=== PATIENT | female | born 1935 | race African-American/Black ===

== ENCOUNTER → 2018-03-22 | Outpatient (CLI) | payer MEDICARE, MEDICAID ==
[~2018-03-22] MED LIST: ACET-2178 PO; ATOR40TA70 PO; CEPH-569 PO; CLON0.1T PO; DOCU-138 PO; INSU3INS6 SUBCUT; KEPP250 PO; LEVO75TA PO; LIP40 PO; LISI10TA5 PO; ONDA4TAB5 PO; REGADENOSON 0.4 MG/5 ML IV ONE; TUSSL PO; WARF5TAB76 PO
== END | disposition home or self-care (01) ==
LOC: NM 07:39
PROVIDERS: ATTEND Specialist
DX: I48.91 Unspecified atrial fibrillation (principal); I10 Essential (primary) hypertension
CPT/HCPCS: 78452; 93017; 93308; A9500; J2785

== ENCOUNTER 2018-08-04 19:40 | Inpatient (IN) | payer MEDICARE, MEDICAID ==
[~2018-08-04] VITALS: Ht 165.1 cm; Wt 74.8 kg
[~2018-08-04 19:40] MED LIST changes: -ATOR40TA70 PO; -CEPH-569 PO; -CLON0.1T PO; +DILT180C66 PO; +INSU100I28 SQ; -INSU3INS6 SUBCUT; -KEPP250 PO; +KEPP500 PO; -LISI10TA5 PO; +MEGE40TA27 PO; -REGADENOSON 0.4 MG/5 ML IV ONE; +TRAM50TA PO; -TUSSL PO
[2018-08-04] MEDS ORDERED: SODIUM CHLORIDE 0.9% 1,000 ML IV ONE (20:41)
[2018-08-04] MEDS ORDERED: VANCOMYCIN 1 G PREMIX 200 ML IV ONE (20:45)
[2018-08-04] MEDS ORDERED: LEVETIRACETAM 500MG PREMIX 100 ML IV ONE (20:45)
[2018-08-04] MEDS ORDERED: PIPERACILLIN/TAZ 3.375G PREMIX 50 ML IV ONE (20:45)
[2018-08-04 21:23] LABS: CHLORIDE 100 mEq/L (98-107)
[2018-08-04 21:25] LABS: INR 1.1; PROTHROMBIN TIME 11.2 sec (9.1-11.1)
[2018-08-04 21:30] LABS: BASOPHILS % 0.3 % (0.0-2.0); EOSINOPHILS % 0.2 % (0.0-5.0); HEMATOCRIT. 35.9 % (36.0-48.0); HEMOGLOBIN. 11.8 g/dL (12.0-16.0); LYMPHOCYTES % 21.8 % (20.0-50.0); MEAN CORPUSCULAR HEMOGLOBIN 29.1 pg (28.0-32.0); MEAN CORPUSCULAR VOLUME 88.5 fL (81.0-99.0); MEAN PLATELET VOLUME 8.6 fl (7.4-10.4); MONOCYTES % 11.5 % (2.0-8.0); NEUTROPHILS % 66.2 % (40.0-76.0); PLATELET 147 x1000/uL (130-400); RED BLOOD CELL COUNT 4.06 mill/uL (4.2-5.4); RED CELL DISTRIBUTION WIDTH 14.7 % (11.6-14.6)
[2018-08-04 21:31] LABS: CARBAMAZEPINE < 0.5 ug/mL (4-12)
[2018-08-04 21:32] LABS: CREATINE KINASE 130 IU/L (26-192)
[2018-08-04 21:34] LABS: PHENOBARBITAL < 2.1 ug/mL (15.0-40.0); VALPROIC ACID < 3.0 ug/mL (50-100)
[2018-08-04 21:38] LABS: CLARITY URINE TURBID (CLEAR); COLOR URINE YELLOW (YELLOW); KETONES URINE NEGATIVE (NEGATIVE); LEUKOCYTE ESTERASE URINE 3+ (NEGATIVE); NITRITE URINE NEGATIVE (NEGATIVE); OCCULT BLOOD URINE 2+ (NEGATIVE); PH URINE 5.5 (4.5-8.0); PROTEIN URINE 2+ (NEGATIVE); SPECIFIC GRAVITY URINE 1.014 (1.005-1.030); UROBILINOGEN URINE 0.2 E.U./dL (0.2-1.0)
[2018-08-04 23:43] LABS: BG BASE EXCESS 3.2 mmol/L (-2.0-2.0); BG CARBOXYHEMOGLOBIN 0.3 % (0.5-1.5); BG DEOXYHEMOGLOBIN 0.8 % (0.0-5.0); BG FRACTION INSPIRED OXYGEN 28; BG HCO3 ACT 27.5 mmol/L (22.0-26.0); BG METHEMOGLOBIN 0.4 % (0.0-1.5); BG OXYGEN SATURATION 99.2 % (92.0-98.5); BG OXYHEMOGLOBIN 98.5 % (94.0-97.0); BG PCO2 41.2 mmHg (35.0-45.0); BG PH 7.443 (7.350-7.450); BG PO2 197.1 mmHg (75.0-100.0); BG SAMPLE SITE RIGHT BRACHIAL; BG VENT MODE NASAL CANNULA
[2018-08-05] VITALS (8 sets, daily range): BP systolic 106–137; BP diastolic 56–97
[2018-08-05] MEDS ORDERED: ASPIRIN 300MG SUPP PR ONE (02:00)
[2018-08-05] MEDS ORDERED: ACETAMINOPHEN 325MG TABLET PO PRN (04:45)
[2018-08-05] MEDS ORDERED: ONDANSETRON HCL 4MG/2ML INJ IV PRN (04:45)
[2018-08-05] MEDS ORDERED: CLONIDINE 0.1MG TABLET PO PRN (04:45)
[2018-08-05] MEDS ORDERED: DOCUSATE SODIUM 100MG CAPSULE PO PRN (04:45)
[2018-08-05] MEDS ORDERED: PIPERACILLIN/TAZ 3.375G PREMIX 50 ML IV SCH (04:45)
[2018-08-05] MEDS ORDERED: ASPI-1158 MT (05:59)
[2018-08-05] MEDS ORDERED: METO-385 MT (05:59)
[2018-08-05] MEDS ORDERED: LEVE750T4 MT (05:59)
[2018-08-05] MEDS ORDERED: MELA3TAB71 MT (05:59)
[2018-08-05] MEDS ORDERED: CLON0.1T MT (05:59)
[2018-08-05] MEDS ORDERED: DEXTROSE 50% WATER 50ML SYRINGE IV PRN (06:00)
[2018-08-05] MEDS: SODIUM CHLORIDE 0.45% 1,000 ML IV SCH (06:29)
[2018-08-05] MEDS: INSULIN LISPRO 100 UNITS/ML SUBCUT SCH ×2 (06:44→12:53)
[2018-08-05] MEDS ORDERED: BLOOD SUGAR DIAGNOSTIC STRIP TEST SCH (07:10)
[2018-08-05] MEDS: IPRATROPIUM/ALBUTEROL 0.5-3(2.5)MG/3ML NEB INH SCH ×3 (09:10→20:58)
[2018-08-05] MEDS ORDERED: INSULIN GLARGINE UD 100 UNITS/ML SYR SUBCUT SCH ×2 (10:00)
[2018-08-05] MEDS: ENOXAPARIN 40MG/0.4ML SYR SUBCUT SCH (13:47)
[2018-08-05] MEDS: LEVETIRACETAM 500MG TABLET PO SCH ×2 (13:48→21:00)
[2018-08-05] MEDS: DILTIAZEM HCL 180MG CAPSULE CD 24HR PO SCH (13:49)
[2018-08-05] MEDS: LEVOTHYROXINE SODIUM 75MCG TABLET PO SCH (13:50)
[2018-08-05] MEDS: ATORVASTATIN CALCIUM 40MG TABLET PO SCH (22:43)
[2018-08-06] VITALS: BP_SYST 122; BP_SYST 91; BP_DIAS 53; BP_DIAS 62
[2018-08-06] MEDS: SODIUM CHLORIDE 0.45% 1,000 ML IV SCH ×2 (00:59→20:54)
[2018-08-06] MEDS: IPRATROPIUM/ALBUTEROL 0.5-3(2.5)MG/3ML NEB INH SCH ×4 (01:16→21:19)
[2018-08-06 04:00] VITALS: BP 122/53
[2018-08-06 07:35] LABS: BASOPHILS % 0.2 % (0.0-2.0); EOSINOPHILS % 0.3 % (0.0-5.0); HEMATOCRIT. 28.9 % (36.0-48.0); HEMOGLOBIN. 9.6 g/dL (12.0-16.0); LYMPHOCYTES % 32.8 % (20.0-50.0); MEAN CORPUSCULAR HEMOGLOBIN 29.2 pg (28.0-32.0); MEAN CORPUSCULAR VOLUME 87.2 fL (81.0-99.0); MEAN PLATELET VOLUME 8.3 fl (7.4-10.4); MONOCYTES % 14.6 % (2.0-8.0); NEUTROPHILS % 52.1 % (40.0-76.0); PLATELET 129 x1000/uL (130-400); RED BLOOD CELL COUNT 3.31 mill/uL (4.2-5.4); RED CELL DISTRIBUTION WIDTH 14.6 % (11.6-14.6)
[2018-08-06 07:54] LABS: CHLORIDE 104 mEq/L (98-107)
[2018-08-06 08:00] VITALS: BP 104/66
[2018-08-06] MEDS: PIPERACILLIN/TAZ 3.375G PREMIX 50 ML IV SCH ×3 (08:25→20:52)
[2018-08-06] MEDS: LEVOTHYROXINE SODIUM 75MCG TABLET PO SCH (08:38)
[2018-08-06] MEDS: ENOXAPARIN 40MG/0.4ML SYR SUBCUT SCH (08:41)
[2018-08-06] MEDS: DILTIAZEM HCL 180MG CAPSULE CD 24HR PO SCH (08:48)
[2018-08-06] MEDS: LEVETIRACETAM 500MG TABLET PO SCH ×2 (08:49→20:54)
[2018-08-06] MEDS ORDERED: POTASSIUM CHLORIDE 20MEQ/PACKET PO SCH (09:30)
[2018-08-06] MEDS ORDERED: DEXTROSE 50% WATER 50ML SYRINGE IV PRN (09:45)
[2018-08-06] MEDS ORDERED: LACTULOSE 20G/30ML UDC PO PRN (09:45)
[2018-08-06] MEDS: BLOOD SUGAR DIAGNOSTIC STRIP TEST SCH ×3 (11:32→19:52)
[2018-08-06] MEDS: FLUCONAZOLE 100MG TABLET PO SCH (11:40)
[2018-08-06] MEDS: INSULIN LISPRO (MEDIUM DOSE) 100 UNITS/ML SUBCUT SCH ×3 (11:42→20:54)
[2018-08-06] MEDS: INSULIN GLARGINE UD 100 UNITS/ML SYR SUBCUT SCH (11:43)
[2018-08-06 12:00] VITALS: BP 124/64
[2018-08-06] MEDS ORDERED: BLOOD SUGAR DIAGNOSTIC STRIP TEST SCH (12:10)
[2018-08-06 16:00] VITALS: BP 131/67
[2018-08-06 20:00] VITALS: BP 136/70
[2018-08-06] MEDS: ATORVASTATIN CALCIUM 40MG TABLET PO SCH (20:54)
[2018-08-07] VITALS: BP 122/71
[2018-08-07] MEDS: IPRATROPIUM/ALBUTEROL 0.5-3(2.5)MG/3ML NEB INH SCH ×4 (01:39→20:08)
[2018-08-07 04:00] VITALS: BP 132/78
[2018-08-07] MEDS: PIPERACILLIN/TAZ 3.375G PREMIX 50 ML IV SCH (05:15)
[2018-08-07] MEDS: BLOOD SUGAR DIAGNOSTIC STRIP TEST SCH ×4 (05:51→20:43)
[2018-08-07] MEDS: INSULIN LISPRO (MEDIUM DOSE) 100 UNITS/ML SUBCUT SCH ×4 (05:52→21:00)
[2018-08-07] MEDS: LEVOTHYROXINE SODIUM 75MCG TABLET PO SCH (05:53)
[2018-08-07 08:00] VITALS: BP 93/69
[2018-08-07] MEDS: FLUCONAZOLE 100MG TABLET PO SCH (08:53)
[2018-08-07] MEDS: LEVETIRACETAM 500MG TABLET PO SCH ×2 (08:53→21:46)
[2018-08-07] MEDS: SODIUM CHLORIDE 0.45% 1,000 ML IV SCH (08:55)
[2018-08-07] MEDS: DILTIAZEM HCL 180MG CAPSULE CD 24HR PO SCH (08:55)
[2018-08-07] MEDS: ENOXAPARIN 40MG/0.4ML SYR SUBCUT SCH (08:56)
[2018-08-07 09:41] LABS: HEMATOCRIT. 31.2 % (36.0-48.0); HEMOGLOBIN. 10.2 g/dL (12.0-16.0); MEAN CORPUSCULAR HEMOGLOBIN 28.6 pg (28.0-32.0); MEAN CORPUSCULAR VOLUME 87.8 fL (81.0-99.0); MEAN PLATELET VOLUME 8.4 fl (7.4-10.4); PLATELET 133 x1000/uL (130-400); RED BLOOD CELL COUNT 3.55 mill/uL (4.2-5.4); RED CELL DISTRIBUTION WIDTH 14.6 % (11.6-14.6)
[2018-08-07 09:48] LABS: CHLORIDE 107 mEq/L (98-107)
[2018-08-07 09:56] LABS: PHOSPHORUS 3.1 mg/dL (2.5-4.9)
[2018-08-07] MEDS: INSULIN GLARGINE UD 100 UNITS/ML SYR SUBCUT SCH (10:44)
[2018-08-07 12:00] VITALS: BP 121/85
[2018-08-07] MEDS ORDERED: MAGNESIUM 4 G PREMIX 100 ML IV NR (13:00)
[2018-08-07 16:00] VITALS: BP 103/66
[2018-08-07 20:00] VITALS: BP 126/59
[2018-08-07 20:36] LABS: PLATELET ESTIMATE NORMAL
[2018-08-07] MEDS: ATORVASTATIN CALCIUM 40MG TABLET PO SCH (21:46)
[2018-08-08] VITALS: BP 130/62
[2018-08-08] MEDS: IPRATROPIUM/ALBUTEROL 0.5-3(2.5)MG/3ML NEB INH SCH ×4 (01:45→20:50)
[2018-08-08 04:00] VITALS: BP 135/65
[2018-08-08] MEDS: BLOOD SUGAR DIAGNOSTIC STRIP TEST SCH ×4 (05:32→20:25)
[2018-08-08] MEDS: INSULIN LISPRO (MEDIUM DOSE) 100 UNITS/ML SUBCUT SCH ×4 (05:32→21:18)
[2018-08-08] MEDS: LEVOTHYROXINE SODIUM 75MCG TABLET PO SCH (05:49)
[2018-08-08 06:57] LABS: BASOPHILS % 0.6 % (0.0-2.0); EOSINOPHILS % 0.8 % (0.0-5.0); HEMATOCRIT. 31.9 % (36.0-48.0); HEMOGLOBIN. 10.5 g/dL (12.0-16.0); MEAN CORPUSCULAR HEMOGLOBIN 29.2 pg (28.0-32.0); MEAN PLATELET VOLUME 8.1 fl (7.4-10.4); MONOCYTES % 14.1 % (2.0-8.0); NEUTROPHILS % 43.5 % (40.0-76.0); PLATELET 87 x1000/uL (130-400); RED BLOOD CELL COUNT 3.58 mill/uL (4.2-5.4); RED CELL DISTRIBUTION WIDTH 14.9 % (11.6-14.6)
[2018-08-08 07:55] LABS: CHLORIDE 107 mEq/L (98-107)
[2018-08-08 08:00] VITALS: BP 161/71
[2018-08-08 08:24] LABS: PHOSPHORUS 3.3 mg/dL (2.5-4.9)
[2018-08-08] MEDS: FLUCONAZOLE 100MG TABLET PO SCH (08:54)
[2018-08-08] MEDS: ENOXAPARIN 40MG/0.4ML SYR SUBCUT SCH (08:56)
[2018-08-08] MEDS: LEVETIRACETAM 500MG TABLET PO SCH ×2 (08:56→21:17)
[2018-08-08] MEDS: DILTIAZEM HCL 180MG CAPSULE CD 24HR PO SCH (08:57)
[2018-08-08] MEDS: INSULIN GLARGINE UD 100 UNITS/ML SYR SUBCUT SCH (10:25)
[2018-08-08 12:00] VITALS: BP 100/70
[2018-08-08 16:00] VITALS: BP 134/62
[2018-08-08 20:00] VITALS: BP 138/56
[2018-08-08] MEDS: ATORVASTATIN CALCIUM 40MG TABLET PO SCH (21:17)
[2018-08-09] VITALS (7 sets, daily range): BP systolic 107–132; BP diastolic 60–72
[2018-08-09] MEDS: BLOOD SUGAR DIAGNOSTIC STRIP TEST SCH ×3 (05:52→17:29)
[2018-08-09] MEDS: INSULIN LISPRO (MEDIUM DOSE) 100 UNITS/ML SUBCUT SCH ×3 (06:18→17:29)
[2018-08-09] MEDS: LEVOTHYROXINE SODIUM 75MCG TABLET PO SCH (06:18)
[2018-08-09] MEDS: IPRATROPIUM/ALBUTEROL 0.5-3(2.5)MG/3ML NEB INH SCH ×3 (09:00→15:00)
[2018-08-09] MEDS: LEVETIRACETAM 500MG TABLET PO SCH (10:53)
[2018-08-09] MEDS: FLUCONAZOLE 100MG TABLET PO SCH (10:53)
[2018-08-09] MEDS: DILTIAZEM HCL 180MG CAPSULE CD 24HR PO SCH (10:53)
[2018-08-09] MEDS: INSULIN GLARGINE UD 100 UNITS/ML SYR SUBCUT SCH (10:54)
[2018-08-09 12:51] LABS: BASOPHILS % 0.2 % (0.0-2.0); EOSINOPHILS % 0.6 % (0.0-5.0); HEMATOCRIT. 31.5 % (36.0-48.0); HEMOGLOBIN. 10.3 g/dL (12.0-16.0); LYMPHOCYTES % 39.7 % (20.0-50.0); MEAN CORPUSCULAR HEMOGLOBIN 28.4 pg (28.0-32.0); MEAN CORPUSCULAR VOLUME 87.3 fL (81.0-99.0); MEAN PLATELET VOLUME 8.6 fl (7.4-10.4); MONOCYTES % 11.5 % (2.0-8.0); PLATELET 142 x1000/uL (130-400); RED BLOOD CELL COUNT 3.61 mill/uL (4.2-5.4); RED CELL DISTRIBUTION WIDTH 14.7 % (11.6-14.6)
[2018-08-09 13:11] LABS: CHLORIDE 103 mEq/L (98-107)
[2018-08-09] MEDS ORDERED: MAGNESIUM 2 G PREMIX 50 ML IV NR (17:00)
== END 2018-08-09 20:48 | DRG 871 ==
LOC: ER 20:48 → 8WST 08-05 02:00 → EDBEDREQDT 08-05 02:03 → EDBEDREQTM 08-05 02:03 → EDBEDREQSVC 08-05 02:03 → EDBEDREQ 08-05 02:03 → ENRESERV 08-05 03:52
PROVIDERS: ADMIT Internal Medicine; ATTEND Internal Medicine
PROC: 4A00X4Z Measurement of Central Nervous Electrical Activity, External Approach (ICD-10-PCS; principal; 2018-08-09)
DX: A41.9 Sepsis, unspecified organism (principal); E43 Unspecified severe protein-calorie malnutrition; I13.0 Hypertensive heart and chronic kidney disease with heart failure and stage 1 through stage 4 chronic kidney disease, or unspecified chronic kidney disease; B37.49 Other urogenital candidiasis; I42.9 Cardiomyopathy, unspecified; I69.354 Hemiplegia and hemiparesis following cerebral infarction affecting left non-dominant side; G40.909 Epilepsy, unspecified, not intractable, without status epilepticus; N18.9 Chronic kidney disease, unspecified; E11.22 Type 2 diabetes mellitus with diabetic chronic kidney disease; E03.9 Hypothyroidism, unspecified; D64.9 Anemia, unspecified; I50.9 Heart failure, unspecified; D69.6 Thrombocytopenia, unspecified; E78.5 Hyperlipidemia, unspecified; I48.2 Chronic atrial fibrillation; E83.42 Hypomagnesemia; E87.6 Hypokalemia; F03.90 Unspecified dementia, unspecified severity, without behavioral disturbance, psychotic disturbance, mood disturbance, and anxiety; K21.9 Gastro-esophageal reflux disease without esophagitis; D72.819 Decreased white blood cell count, unspecified; Z79.4 Long term (current) use of insulin; Z85.3 Personal history of malignant neoplasm of breast; Z86.718 Personal history of other venous thrombosis and embolism; Z90.11 Acquired absence of right breast and nipple; Z95.810 Presence of automatic (implantable) cardiac defibrillator; Z68.27 Body mass index [BMI] 27.0-27.9, adult; Z87.440 Personal history of urinary (tract) infections; Z79.01 Long term (current) use of anticoagulants; Z79.899 Other long term (current) drug therapy
CPT/HCPCS: 36415; 36600; 71045; 74176; 80048; 80156; 80165; 80184; 80185; 82375; 82542; 82550; 82805; 82962; 83036; 83605; 83735; 84100; 84145; 84439; 84443; 84484; 87106; 92610; 93005; 93306; 93970; 94640; 96361; 96365; 96366; 96368; 99285; J1650; J1815; J1953; J2543; J3370; J3475; J7030; J7050; J7620

== ENCOUNTER 2018-12-08 21:57 | Inpatient (IN) | payer MEDICARE, MEDICAID ==
[~2018-12-08] VITALS: Ht 165.1 cm; Wt 49.9 kg
[~2018-12-08 21:57] MED LIST changes: +ASPI-1158 MT; +CLON0.1T MT; -KEPP500 PO; +LEVE750T4 MT; +MELA3TAB71 MT; +METO-385 MT
[2018-12-08 23:37] LABS: BG BASE EXCESS -5.5 mmol/L (-2.0-2.0); BG CARBOXYHEMOGLOBIN 0.3 % (0.5-1.5); BG FRACTION INSPIRED OXYGEN 21; BG HCO3 ACT 16.3 mmol/L (22.0-26.0); BG METHEMOGLOBIN 0.3 % (0.0-1.5); BG OXYHEMOGLOBIN 98.4 % (94.0-97.0); BG PCO2 22.5 mmHg (35.0-45.0); BG PH 7.479 (7.350-7.450); BG PO2 151.8 mmHg (75.0-100.0); BG SAMPLE SITE RIGHT RADIAL; BG TOTAL HEMOGLOBIN 11.6 g/dL (12.0-18.0); BG VENT MODE ROOM AIR
[2018-12-08 23:56] LABS: CLARITY URINE CLOUDY (CLEAR); COLOR URINE YELLOW (YELLOW); KETONES URINE TRACE (NEGATIVE); LEUKOCYTE ESTERASE URINE 3+ (NEGATIVE); NITRITE URINE POSITIVE (NEGATIVE); OCCULT BLOOD URINE 2+ (NEGATIVE); PH URINE 5.5 (4.5-8.0); PROTEIN URINE 2+ (NEGATIVE); SPECIFIC GRAVITY URINE 1.021 (1.005-1.030); UROBILINOGEN URINE 0.2 E.U./dL (0.2-1.0)
[2018-12-09 00:26] LABS: BASOPHILS % 0.2 % (0.0-2.0); EOSINOPHILS % 0.1 % (0.0-5.0); HEMATOCRIT. 36.8 % (36.0-48.0); HEMOGLOBIN. 12.1 g/dL (12.0-16.0); MEAN CORPUSCULAR HEMOGLOBIN 29.5 pg (28.0-32.0); MEAN CORPUSCULAR VOLUME 90.2 fL (81.0-99.0); MEAN PLATELET VOLUME 8.4 fl (7.4-10.4); MONOCYTES % 9.7 % (2.0-8.0); PLATELET 120 x1000/uL (130-400); RED BLOOD CELL COUNT 4.08 mill/uL (4.2-5.4); RED CELL DISTRIBUTION WIDTH 16.7 % (11.6-14.6)
[2018-12-09 00:30] LABS: CHLORIDE 109 mEq/L (98-107)
[2018-12-09] MEDS ORDERED: CEFTRIAXONE SODIUM 1 G/VIAL IM ONE (02:00)
[2018-12-09] MEDS ORDERED: CEFTRIAXONE 1 G PREMIX 50 ML IV ONE (02:45)
[2018-12-09 04:00] VITALS: BP 131/66
[2018-12-09] MEDS ORDERED: ACETAMINOPHEN 325MG TABLET PO PRN ×4 (04:45→06:45)
[2018-12-09] MEDS ORDERED: LORAZEPAM 0.5MG TABLET PO PRN (04:45)
[2018-12-09] MEDS ORDERED: LACTULOSE 20G/30ML UDC PO PRN (04:45)
[2018-12-09] MEDS ORDERED: DEXTROSE 50% WATER 50ML SYRINGE IV PRN ×2 (05:45)
[2018-12-09] MEDS: BLOOD SUGAR DIAGNOSTIC STRIP TEST SCH ×4 (06:47→20:31)
[2018-12-09] MEDS: LEVOTHYROXINE SODIUM 75MCG TABLET PO SCH (06:58)
[2018-12-09] MEDS ORDERED: BLOOD SUGAR DIAGNOSTIC STRIP TEST SCH (07:20)
[2018-12-09 08:00] VITALS: BP 101/41
[2018-12-09] MEDS: DILTIAZEM HCL 180MG CAPSULE CD 24HR PO SCH (08:56)
[2018-12-09] MEDS: LEVETIRACETAM 500MG TABLET PO SCH ×2 (09:03→21:34)
[2018-12-09] MEDS: MEGESTROL ACETATE 400 MG/10 ML UDC PO SCH ×2 (09:04→17:22)
[2018-12-09] MEDS: POLYVINYL ALCOHOL OPHTH DROPS 15ML BOTHEYE SCH ×2 (09:04→17:22)
[2018-12-09] MEDS: ASCORBIC ACID 500 MG TABLET PO SCH (09:04)
[2018-12-09] MEDS: DOCUSATE SODIUM 250MG CAPSULE PO SCH (09:04)
[2018-12-09] MEDS: INSULIN LISPRO 100 UNITS/ML SUBCUT SCH ×4 (09:06→21:55)
[2018-12-09 09:24] LABS: T4 FREE 1.16 ng/dL (0.76-1.46)
[2018-12-09] MEDS ORDERED: INSULIN GLARGINE UD 100 UNITS/ML SYR SUBCUT SCH (10:00)
[2018-12-09] MEDS: TRAMADOL 50MG TABLET PO PRN (10:27)
[2018-12-09] MEDS ORDERED: LEVOFLOXACIN 250MG TABLET PO SCH (11:00)
[2018-12-09 11:50] VITALS: BP 128/72
[2018-12-09 12:00] VITALS: BP 128/72
[2018-12-09 16:00] VITALS: BP 110/68
[2018-12-09 20:00] VITALS: BP 122/88
[2018-12-09] MEDS: ATORVASTATIN CALCIUM 40MG TABLET PO SCH (21:34)
[2018-12-10] VITALS: BP 128/77
[2018-12-10] MEDS: INSULIN GLARGINE UD 100 UNITS/ML SYR SUBCUT SCH ×3 (00:09→21:40)
[2018-12-10 04:00] VITALS: BP 131/88
[2018-12-10] MEDS: BLOOD SUGAR DIAGNOSTIC STRIP TEST SCH ×4 (06:48→20:22)
[2018-12-10] MEDS: LEVOTHYROXINE SODIUM 75MCG TABLET PO SCH (07:20)
[2018-12-10 08:00] VITALS: BP 164/104
[2018-12-10] MEDS: INSULIN LISPRO 100 UNITS/ML SUBCUT SCH ×4 (08:51→20:22)
[2018-12-10] MEDS: DOCUSATE SODIUM 250MG CAPSULE PO SCH (09:00)
[2018-12-10] MEDS: ASCORBIC ACID 500 MG TABLET PO SCH (09:00)
[2018-12-10] MEDS: DILTIAZEM HCL 180MG CAPSULE CD 24HR PO SCH ×2 (09:00→20:21)
[2018-12-10] MEDS: MEGESTROL ACETATE 400 MG/10 ML UDC PO SCH ×2 (09:00→16:43)
[2018-12-10] MEDS: POLYVINYL ALCOHOL OPHTH DROPS 15ML BOTHEYE SCH ×2 (09:00→16:43)
[2018-12-10] MEDS: LEVETIRACETAM 500MG TABLET PO SCH ×2 (09:00→20:22)
[2018-12-10] MEDS ORDERED: NA PHOS,M-B/NA PHOS,DI-BA ENEMA 118ML PR NR (09:30)
[2018-12-10] MEDS ORDERED: DEXT 5%/0.9% NACL 1,000 ML IV SCH (09:30)
[2018-12-10] MEDS ORDERED: SODIUM CHLORIDE 0.45% 1,000 ML IV SCH (10:00)
[2018-12-10] MEDS: ASPIRIN 81MG TABLET PO SCH (10:45)
[2018-12-10] MEDS: ENOXAPARIN 60MG/0.6ML SYR SUBCUT SCH (10:52)
[2018-12-10] MEDS: LEVOFLOXACIN 250MG PREMIX 50 ML IV SCH (11:14)
[2018-12-10 12:00] VITALS: BP 161/102
[2018-12-10 13:37] LABS: CHLORIDE 107 mEq/L (98-107)
[2018-12-10 16:00] VITALS: BP 128/83
[2018-12-10 16:55] LABS: BASOPHILS % 0.2 % (0.0-2.0); EOSINOPHILS % 0.1 % (0.0-5.0); HEMATOCRIT. 37.8 % (36.0-48.0); HEMOGLOBIN. 12.6 g/dL (12.0-16.0); LYMPHOCYTES % 26.2 % (20.0-50.0); MEAN CORPUSCULAR HEMOGLOBIN 29.7 pg (28.0-32.0); MEAN CORPUSCULAR VOLUME 89.1 fL (81.0-99.0); MEAN PLATELET VOLUME 8.1 fl (7.4-10.4); MONOCYTES % 9.8 % (2.0-8.0); NEUTROPHILS % 63.7 % (40.0-76.0); PLATELET 136 x1000/uL (130-400); RED BLOOD CELL COUNT 4.24 mill/uL (4.2-5.4); RED CELL DISTRIBUTION WIDTH 16.3 % (11.6-14.6)
[2018-12-10 17:00] LABS: INR 1.1; PROTHROMBIN TIME 11.4 sec (9.1-11.1)
[2018-12-10 20:00] VITALS: BP 115/75
[2018-12-10] MEDS: ATORVASTATIN CALCIUM 40MG TABLET PO SCH (20:22)
[2018-12-10] MEDS: DEXT 5%/0.45% NACL 500ML 1,000 ML IV SCH (21:47)
[2018-12-10] MEDS: MUPIROCIN 2% OINT 22GM TOP SCH (21:48)
[2018-12-11] VITALS: BP 110/76
[2018-12-11 04:00] VITALS: BP 123/93
[2018-12-11] MEDS: MUPIROCIN 2% OINT 22GM TOP SCH ×3 (05:14→23:15)
[2018-12-11] MEDS: LEVOTHYROXINE SODIUM 75MCG TABLET PO SCH (06:20)
[2018-12-11] MEDS: BLOOD SUGAR DIAGNOSTIC STRIP TEST SCH ×4 (06:32→21:05)
[2018-12-11] MEDS: INSULIN LISPRO 100 UNITS/ML SUBCUT SCH ×4 (07:50→21:00)
[2018-12-11 08:00] VITALS: BP 158/82
[2018-12-11] MEDS: INSULIN GLARGINE UD 100 UNITS/ML SYR SUBCUT SCH ×2 (10:00→21:05)
[2018-12-11] MEDS: DILTIAZEM HCL 180MG CAPSULE CD 24HR PO SCH ×2 (10:29→20:04)
[2018-12-11] MEDS: MEGESTROL ACETATE 400 MG/10 ML UDC PO SCH ×2 (10:31→18:19)
[2018-12-11] MEDS: ASCORBIC ACID 500 MG TABLET PO SCH (10:35)
[2018-12-11] MEDS: LEVETIRACETAM 500MG TABLET PO SCH ×2 (10:35→20:57)
[2018-12-11] MEDS: ASPIRIN 81MG TABLET PO SCH (10:35)
[2018-12-11] MEDS: POLYVINYL ALCOHOL OPHTH DROPS 15ML BOTHEYE SCH ×2 (10:36→17:00)
[2018-12-11] MEDS: DOCUSATE SODIUM 250MG CAPSULE PO SCH (10:36)
[2018-12-11] MEDS: ENOXAPARIN 60MG/0.6ML SYR SUBCUT SCH (10:36)
[2018-12-11 12:00] VITALS: BP 142/74
[2018-12-11] MEDS: LEVOFLOXACIN 250MG PREMIX 50 ML IV SCH (12:29)
[2018-12-11 16:00] VITALS: BP 138/82
[2018-12-11] MEDS: DEXT 5%/0.45% NACL 500ML 1,000 ML IV SCH (18:09)
[2018-12-11 20:00] VITALS: BP 109/57
[2018-12-11] MEDS: TRAMADOL 50MG TABLET PO PRN (20:57)
[2018-12-11] MEDS: ATORVASTATIN CALCIUM 40MG TABLET PO SCH (20:57)
[2018-12-12] VITALS: BP 126/80
[2018-12-12 04:00] VITALS: BP 130/76
[2018-12-12] MEDS: LEVOTHYROXINE SODIUM 75MCG TABLET PO SCH (06:20)
[2018-12-12] MEDS: BLOOD SUGAR DIAGNOSTIC STRIP TEST SCH ×4 (06:29→21:00)
[2018-12-12 07:26] LABS: BASOPHILS % 0.2 % (0.0-2.0); EOSINOPHILS % 0.2 % (0.0-5.0); HEMATOCRIT. 36.1 % (36.0-48.0); HEMOGLOBIN. 12.2 g/dL (12.0-16.0); LYMPHOCYTES % 29.8 % (20.0-50.0); MEAN CORPUSCULAR VOLUME 89.1 fL (81.0-99.0); MEAN PLATELET VOLUME 8.1 fl (7.4-10.4); MONOCYTES % 9.6 % (2.0-8.0); NEUTROPHILS % 60.2 % (40.0-76.0); PLATELET 132 x1000/uL (130-400); RED BLOOD CELL COUNT 4.05 mill/uL (4.2-5.4); RED CELL DISTRIBUTION WIDTH 16.1 % (11.6-14.6)
[2018-12-12 07:48] LABS: CHLORIDE 106 mEq/L (98-107)
[2018-12-12] MEDS: INSULIN LISPRO 100 UNITS/ML SUBCUT SCH ×4 (07:50→21:00)
[2018-12-12] MEDS: ASPIRIN 81MG TABLET PO SCH (09:29)
[2018-12-12] MEDS: MEGESTROL ACETATE 400 MG/10 ML UDC PO SCH ×2 (09:29→18:16)
[2018-12-12] MEDS: DOCUSATE SODIUM 250MG CAPSULE PO SCH (09:29)
[2018-12-12] MEDS: ENOXAPARIN 60MG/0.6ML SYR SUBCUT SCH (09:29)
[2018-12-12] MEDS: ASCORBIC ACID 500 MG TABLET PO SCH (09:29)
[2018-12-12] MEDS: LEVETIRACETAM 500MG TABLET PO SCH ×2 (09:30→22:17)
[2018-12-12] MEDS: POLYVINYL ALCOHOL OPHTH DROPS 15ML BOTHEYE SCH ×2 (09:30→17:00)
[2018-12-12] MEDS: DILTIAZEM HCL 180MG CAPSULE CD 24HR PO SCH ×2 (09:30→22:17)
[2018-12-12] MEDS: INSULIN GLARGINE UD 100 UNITS/ML SYR SUBCUT SCH ×2 (09:43→22:00)
[2018-12-12] MEDS: LEVOFLOXACIN 250MG PREMIX 50 ML IV SCH (11:16)
[2018-12-12] MEDS: MUPIROCIN 2% OINT 22GM TOP SCH ×2 (14:36→22:32)
[2018-12-12] MEDS: DEXT 5%/0.45% NACL 500ML 1,000 ML IV SCH (14:36)
[2018-12-12] MEDS: CEFAZOLIN 500 MG in DEXTROSE 5% WATER 50 ML IV SCH ×2 (14:36→22:19)
[2018-12-12 20:00] VITALS: BP 136/80
[2018-12-12] MEDS: ATORVASTATIN CALCIUM 40MG TABLET PO SCH (22:17)
[2018-12-13] VITALS (7 sets, daily range): BP systolic 91–130; BP diastolic 58–78
[2018-12-13] MEDS: CEFAZOLIN 500 MG in DEXTROSE 5% WATER 50 ML IV SCH ×3 (04:39→20:00)
[2018-12-13] MEDS: MUPIROCIN 2% OINT 22GM TOP SCH ×2 (06:00→14:00)
[2018-12-13] MEDS: BLOOD SUGAR DIAGNOSTIC STRIP TEST SCH ×4 (07:49→21:00)
[2018-12-13] MEDS: LEVOTHYROXINE SODIUM 75MCG TABLET PO SCH (07:49)
[2018-12-13] MEDS: DILTIAZEM HCL 180MG CAPSULE CD 24HR PO SCH ×2 (09:00→20:55)
[2018-12-13] MEDS: LEVETIRACETAM 500MG TABLET PO SCH ×2 (09:06→20:54)
[2018-12-13] MEDS: ENOXAPARIN 60MG/0.6ML SYR SUBCUT SCH (09:06)
[2018-12-13] MEDS: MEGESTROL ACETATE 400 MG/10 ML UDC PO SCH ×2 (09:06→17:00)
[2018-12-13] MEDS: DOCUSATE SODIUM 250MG CAPSULE PO SCH (09:06)
[2018-12-13] MEDS: ASPIRIN 81MG TABLET PO SCH (09:07)
[2018-12-13] MEDS: ASCORBIC ACID 500 MG TABLET PO SCH (09:07)
[2018-12-13] MEDS: POLYVINYL ALCOHOL OPHTH DROPS 15ML BOTHEYE SCH ×2 (09:24→17:00)
[2018-12-13] MEDS: INSULIN LISPRO 100 UNITS/ML SUBCUT SCH ×4 (09:42→21:20)
[2018-12-13] MEDS: INSULIN GLARGINE UD 100 UNITS/ML SYR SUBCUT SCH (09:42)
[2018-12-13 09:53] LABS: BASOPHILS % 0.3 % (0.0-2.0); EOSINOPHILS % 0.1 % (0.0-5.0); HEMATOCRIT. 34.9 % (36.0-48.0); HEMOGLOBIN. 11.4 g/dL (12.0-16.0); LYMPHOCYTES % 27.9 % (20.0-50.0); MEAN CORPUSCULAR HEMOGLOBIN 29.3 pg (28.0-32.0); MEAN CORPUSCULAR VOLUME 89.9 fL (81.0-99.0); MEAN PLATELET VOLUME 8.7 fl (7.4-10.4); MONOCYTES % 7.3 % (2.0-8.0); NEUTROPHILS % 64.4 % (40.0-76.0); PLATELET 129 x1000/uL (130-400); RED BLOOD CELL COUNT 3.88 mill/uL (4.2-5.4); RED CELL DISTRIBUTION WIDTH 16.2 % (11.6-14.6)
[2018-12-13 10:24] LABS: CHLORIDE 102 mEq/L (98-107)
[2018-12-13] MEDS: DOXYCYCLINE HYCLATE 100MG CAPSULE PO SCH ×2 (12:06→20:54)
[2018-12-13] MEDS: ATORVASTATIN CALCIUM 40MG TABLET PO SCH (20:54)
== END 2018-12-13 22:09 | DRG 592 ==
LOC: ER 21:57 → 6EST 12-09 01:58 → EDBEDREQ 12-09 01:59 → EDBEDREQTM 12-09 01:59 → ENRESERV 12-09 02:01
PROVIDERS: ADMIT Internal Medicine; ATTEND Internal Medicine
DX: L89.159 Pressure ulcer of sacral region, unspecified stage (principal); G93.41 Metabolic encephalopathy; N39.0 Urinary tract infection, site not specified; I82.511 Chronic embolism and thrombosis of right femoral vein; I42.9 Cardiomyopathy, unspecified; E46 Unspecified protein-calorie malnutrition; Z68.1 Body mass index [BMI] 19.9 or less, adult; B96.20 Unspecified Escherichia coli [E. coli] as the cause of diseases classified elsewhere; E11.51 Type 2 diabetes mellitus with diabetic peripheral angiopathy without gangrene; L97.529 Non-pressure chronic ulcer of other part of left foot with unspecified severity; L97.519 Non-pressure chronic ulcer of other part of right foot with unspecified severity; D64.9 Anemia, unspecified; I11.0 Hypertensive heart disease with heart failure; Z86.73 Personal history of transient ischemic attack (TIA), and cerebral infarction without residual deficits; E03.9 Hypothyroidism, unspecified; E11.65 Type 2 diabetes mellitus with hyperglycemia; F03.90 Unspecified dementia, unspecified severity, without behavioral disturbance, psychotic disturbance, mood disturbance, and anxiety; I50.9 Heart failure, unspecified; I48.2 Chronic atrial fibrillation; Z95.810 Presence of automatic (implantable) cardiac defibrillator; Z85.3 Personal history of malignant neoplasm of breast; Z90.11 Acquired absence of right breast and nipple; Z79.82 Long term (current) use of aspirin; Z79.84 Long term (current) use of oral hypoglycemic drugs
CPT/HCPCS: 36415; 36600; 74018; 80048; 80076; 82375; 82805; 82962; 83036; 83605; 84439; 84443; 87077; 87186; 93923; 93970; 96365; 96372; 99285; A6261; J0690; J0696; J1650; J1815; J1956; J7060

== ENCOUNTER 2019-01-14 11:37 | Inpatient (IN) | payer MEDICARE, MEDICAID ==
[~2019-01-14] VITALS: Ht 167.6 cm; Wt 64.0 kg
[2019-01-14] MEDS ORDERED: SODIUM CHLORIDE 0.9% 1,000 ML IV ONE (12:05)
[2019-01-14 12:37] LABS: BASOPHILS % 0.4 % (0.0-2.0); EOSINOPHILS % 0.1 % (0.0-5.0); HEMATOCRIT. 39.6 % (36.0-48.0); HEMOGLOBIN. 13.4 g/dL (12.0-16.0); LYMPHOCYTES % 27.5 % (20.0-50.0); MEAN CORPUSCULAR HEMOGLOBIN 30.5 pg (28.0-32.0); MEAN CORPUSCULAR VOLUME 89.9 fL (81.0-99.0); MONOCYTES % 9.5 % (2.0-8.0); NEUTROPHILS % 62.5 % (40.0-76.0); PLATELET 152 x1000/uL (130-400); RED CELL DISTRIBUTION WIDTH 14.9 % (11.6-14.6)
[2019-01-14 12:44] LABS: CHLORIDE 108 mEq/L (98-107)
[2019-01-14 12:47] LABS: INR 1.1; PROTHROMBIN TIME 11.4 sec (9.6-11.0)
[2019-01-14 15:13] LABS: CLARITY URINE TURBID (CLEAR); COLOR URINE YELLOW (YELLOW); KETONES URINE NEGATIVE (NEGATIVE); LEUKOCYTE ESTERASE URINE 3+ (NEGATIVE); NITRITE URINE NEGATIVE (NEGATIVE); OCCULT BLOOD URINE 2+ (NEGATIVE); PH URINE 5.5 (4.5-8.0); PROTEIN URINE 2+ (NEGATIVE); SPECIFIC GRAVITY URINE 1.011 (1.005-1.030); UROBILINOGEN URINE 0.2 E.U./dL (0.2-1.0)
[2019-01-14] MEDS ORDERED: CEFTRIAXONE 1 G PREMIX 50 ML IV ONE (16:30)
[2019-01-14] MEDS ORDERED: ACETAMINOPHEN 325MG TABLET PO PRN (21:45)
[2019-01-14] MEDS ORDERED: ONDANSETRON HCL 4MG/2ML INJ IV PRN (21:45)
[2019-01-14] MEDS ORDERED: CLONIDINE 0.1MG TABLET PO PRN (21:45)
[2019-01-14] MEDS ORDERED: MAGNESIUM/ALUMINUM HYDROXIDE/SIMETHICONE 30ML UDC PO PRN (21:45)
[2019-01-15 00:20] VITALS: BP 136/105
[2019-01-15] MEDS ORDERED: ASCO-339 PO (01:42)
[2019-01-15] MEDS ORDERED: SODIUM CHLORIDE 0.9% 1,000 ML IV NR (02:00)
[2019-01-15] MEDS ORDERED: DEXTROSE 50% WATER 50ML SYRINGE IV PRN (04:45)
[2019-01-15] MEDS ORDERED: LEVOFLOXACIN 500MG PREMIX 100 ML IV NR (06:00)
[2019-01-15 06:04] LABS: HEMATOCRIT. 36.3 % (36.0-48.0); HEMOGLOBIN. 12.1 g/dL (12.0-16.0); MEAN CORPUSCULAR HEMOGLOBIN 30.2 pg (28.0-32.0); MEAN CORPUSCULAR VOLUME 90.9 fL (81.0-99.0); MEAN PLATELET VOLUME 8.9 fl (7.4-10.4); PLATELET 130 x1000/uL (130-400); RED CELL DISTRIBUTION WIDTH 14.9 % (11.6-14.6)
[2019-01-15 07:09] LABS: CHLORIDE 110 mEq/L (98-107)
[2019-01-15] MEDS: INSULIN LISPRO 100 UNITS/ML SUBCUT SCH ×4 (07:15→22:18)
[2019-01-15 07:17] LABS: PHOSPHORUS 2.8 mg/dL (2.5-4.9)
[2019-01-15] MEDS: BLOOD SUGAR DIAGNOSTIC STRIP TEST SCH ×4 (07:22→21:58)
[2019-01-15 08:00] VITALS: BP 116/71
[2019-01-15] MEDS: ENOXAPARIN 40MG/0.4ML SYR SUBCUT SCH (08:52)
[2019-01-15 11:44] LABS: PLATELET ESTIMATE NORMAL
[2019-01-15 12:00] VITALS: BP 151/90
[2019-01-15] MEDS ORDERED: MAGNESIUM 4 G PREMIX 100 ML IV SCH (14:00)
[2019-01-15 16:00] VITALS: BP 128/86
[2019-01-15 20:00] VITALS: BP 130/95
[2019-01-16] VITALS: BP 147/60
[2019-01-16 04:00] VITALS: BP 138/65
[2019-01-16] MEDS: BLOOD SUGAR DIAGNOSTIC STRIP TEST SCH ×4 (06:49→20:33)
[2019-01-16] MEDS: INSULIN LISPRO 100 UNITS/ML SUBCUT SCH ×4 (06:50→21:32)
[2019-01-16 08:00] VITALS: BP 142/96
[2019-01-16] MEDS ORDERED: MAGNESIUM 2 G PREMIX 50 ML IV SCH (08:00)
[2019-01-16] MEDS: LEVOFLOXACIN 250MG PREMIX 50 ML IV SCH (08:33)
[2019-01-16] MEDS: MAGNESIUM OXIDE 400MG TABLET PO SCH (09:34)
[2019-01-16] MEDS: ENOXAPARIN 40MG/0.4ML SYR SUBCUT SCH (09:35)
[2019-01-16 10:21] LABS: BASOPHILS % 0.3 % (0.0-2.0); EOSINOPHILS % 0.2 % (0.0-5.0); HEMATOCRIT. 37.2 % (36.0-48.0); HEMOGLOBIN. 12.4 g/dL (12.0-16.0); LYMPHOCYTES % 33.5 % (20.0-50.0); MEAN CORPUSCULAR HEMOGLOBIN 30.3 pg (28.0-32.0); MEAN CORPUSCULAR VOLUME 91.3 fL (81.0-99.0); MEAN PLATELET VOLUME 8.4 fl (7.4-10.4); MONOCYTES % 10.3 % (2.0-8.0); NEUTROPHILS % 55.7 % (40.0-76.0); PLATELET 132 x1000/uL (130-400); RED BLOOD CELL COUNT 4.08 mill/uL (4.2-5.4); RED CELL DISTRIBUTION WIDTH 14.7 % (11.6-14.6)
[2019-01-16 10:29] LABS: CHLORIDE 108 mEq/L (98-107)
[2019-01-16] MEDS: LEVETIRACETAM 500MG TABLET PO SCH ×2 (11:04→20:21)
[2019-01-16 12:00] VITALS: BP 138/99
[2019-01-16] MEDS ORDERED: DIATR MEGLU/DIATRIZOATE SOLN 30ML PO ONE (12:45)
[2019-01-16] MEDS ORDERED: MINERAL OIL ENEMA 133ML PR NR (15:45)
[2019-01-16 16:00] VITALS: BP 101/74
[2019-01-16 20:00] VITALS: BP 106/33
[2019-01-16] MEDS: INSULIN GLARGINE UD 100 UNITS/ML SYR SUBCUT SCH (21:33)
[2019-01-17] VITALS: BP 141/89
[2019-01-17 04:00] VITALS: BP 137/59
[2019-01-17 06:54] LABS: HEMATOCRIT. 35.2 % (36.0-48.0); HEMOGLOBIN. 11.6 g/dL (12.0-16.0); MEAN CORPUSCULAR HEMOGLOBIN 29.7 pg (28.0-32.0); MEAN CORPUSCULAR VOLUME 90.2 fL (81.0-99.0); MEAN PLATELET VOLUME 8.4 fl (7.4-10.4); PLATELET 131 x1000/uL (130-400); RED CELL DISTRIBUTION WIDTH 15.1 % (11.6-14.6)
[2019-01-17] MEDS: INSULIN LISPRO 100 UNITS/ML SUBCUT SCH ×4 (07:05→22:01)
[2019-01-17] MEDS: BLOOD SUGAR DIAGNOSTIC STRIP TEST SCH ×4 (07:06→21:00)
[2019-01-17 07:08] LABS: CHLORIDE 108 mEq/L (98-107)
[2019-01-17 08:00] VITALS: BP_SYST 127; BP_SYST 176; BP_DIAS 68; BP_DIAS 97
[2019-01-17] MEDS: ENOXAPARIN 40MG/0.4ML SYR SUBCUT SCH (08:36)
[2019-01-17] MEDS: MAGNESIUM OXIDE 400MG TABLET PO SCH (08:36)
[2019-01-17] MEDS: LEVETIRACETAM 500MG TABLET PO SCH ×2 (08:36→21:59)
[2019-01-17] MEDS: LEVOFLOXACIN 250MG PREMIX 50 ML IV SCH (09:50)
[2019-01-17] MEDS: INSULIN GLARGINE UD 100 UNITS/ML SYR SUBCUT SCH ×2 (10:16→21:59)
[2019-01-17 12:00] VITALS: BP 125/75
[2019-01-17] MEDS: ASPIRIN 81MG TABLET PO SCH (12:45)
[2019-01-17 13:50] LABS: PLATELET ESTIMATE NORMAL
[2019-01-17 16:00] VITALS: BP 111/57
[2019-01-17 20:00] VITALS: BP 119/77
[2019-01-17] MEDS: METOPROLOL TARTRATE 50MG TABLET PO SCH (21:00)
[2019-01-17] MEDS: ATORVASTATIN CALCIUM 20MG TABLET PO SCH (21:59)
[2019-01-18] VITALS (7 sets, daily range): BP systolic 107–140; BP diastolic 70–78
[2019-01-18] MEDS: BLOOD SUGAR DIAGNOSTIC STRIP TEST SCH ×4 (06:15→20:29)
[2019-01-18] MEDS: INSULIN LISPRO 100 UNITS/ML SUBCUT SCH ×4 (06:15→20:37)
[2019-01-18] MEDS: LEVOFLOXACIN 250MG PREMIX 50 ML IV SCH (08:12)
[2019-01-18] MEDS: LEVETIRACETAM 500MG TABLET PO SCH ×2 (09:01→20:28)
[2019-01-18] MEDS: MAGNESIUM OXIDE 400MG TABLET PO SCH (09:01)
[2019-01-18] MEDS: METOPROLOL TARTRATE 50MG TABLET PO SCH ×2 (09:02→20:29)
[2019-01-18] MEDS: ASPIRIN 81MG TABLET PO SCH (09:02)
[2019-01-18] MEDS: ENOXAPARIN 40MG/0.4ML SYR SUBCUT SCH (09:03)
[2019-01-18] MEDS: INSULIN GLARGINE UD 100 UNITS/ML SYR SUBCUT SCH (10:56)
[2019-01-18] MEDS: ATORVASTATIN CALCIUM 20MG TABLET PO SCH (20:29)
== END 2019-01-18 20:58 | DRG 689 ==
LOC: ER 11:37 → 5WST 14:38 → EDBEDREQ 14:48 → ENRESERV 20:25
PROVIDERS: ADMIT Internal Medicine; ATTEND Internal Medicine
PROC: 4A00X4Z Measurement of Central Nervous Electrical Activity, External Approach (ICD-10-PCS; principal; 2019-01-18)
DX: N39.0 Urinary tract infection, site not specified (principal); G93.41 Metabolic encephalopathy; E46 Unspecified protein-calorie malnutrition; E87.2 Acidosis; I42.9 Cardiomyopathy, unspecified; R62.7 Adult failure to thrive; E83.42 Hypomagnesemia; F03.90 Unspecified dementia, unspecified severity, without behavioral disturbance, psychotic disturbance, mood disturbance, and anxiety; G40.909 Epilepsy, unspecified, not intractable, without status epilepticus; J44.9 Chronic obstructive pulmonary disease, unspecified; E03.9 Hypothyroidism, unspecified; E11.51 Type 2 diabetes mellitus with diabetic peripheral angiopathy without gangrene; I11.0 Hypertensive heart disease with heart failure; I50.9 Heart failure, unspecified; I48.2 Chronic atrial fibrillation; D64.9 Anemia, unspecified; K21.9 Gastro-esophageal reflux disease without esophagitis; E78.00 Pure hypercholesterolemia, unspecified; I49.5 Sick sinus syndrome; R13.10 Dysphagia, unspecified; Z74.01 Bed confinement status; Z79.4 Long term (current) use of insulin; Z85.3 Personal history of malignant neoplasm of breast; Z86.73 Personal history of transient ischemic attack (TIA), and cerebral infarction without residual deficits; Z90.11 Acquired absence of right breast and nipple; Z79.82 Long term (current) use of aspirin; Z95.810 Presence of automatic (implantable) cardiac defibrillator; Z79.899 Other long term (current) drug therapy; Z79.01 Long term (current) use of anticoagulants; Z68.22 Body mass index [BMI] 22.0-22.9, adult; Z87.440 Personal history of urinary (tract) infections
CPT/HCPCS: 36415; 71045; 74018; 74176; 80048; 82962; 83036; 83605; 83735; 84100; 84443; 84484; 87077; 87186; 92610; 93005; 93306; 99285; J0696; J1650; J1815; J1956; J3475; J7030; J7050

== ENCOUNTER 2019-02-22 01:02 | Inpatient (IN) | payer MEDICARE, MEDICAID ==
[~2019-02-22] VITALS: Ht 322.6 cm; Wt 64.4 kg
[2019-02-22] VITALS (7 sets, daily range): BP systolic 111–129; BP diastolic 67–83
[~2019-02-22 01:02] MED LIST changes: +ASCO-339 PO; -CLON0.1T MT; -DOCU-138 PO; -METO-385 MT; -ONDA4TAB5 PO; -TRAM50TA PO; -WARF5TAB76 PO
[2019-02-22] MEDS ORDERED: VANCOMYCIN 1 G PREMIX 200 ML IV ONE (01:15)
[2019-02-22] MEDS ORDERED: PIPERACILLIN/TAZ 3.375G PREMIX 50 ML IV ONE (01:15)
[2019-02-22] MEDS ORDERED: ONDANSETRON HCL 4MG/2ML INJ IV STA (01:15)
[2019-02-22] MEDS ORDERED: LEVETIRACETAM 500MG PREMIX 100 ML IV ONE (01:15)
[2019-02-22] MEDS ORDERED: SODIUM CHLORIDE 0.9% 1000ML BAG (SEPSIS BOLUS) IV ONE (01:15)
[2019-02-22] MEDS ORDERED: LORAZEPAM 2MG/ML CPJ IV ONE (01:15)
[2019-02-22 01:28] LABS: BASOPHILS % 0.1 % (0.0-2.0); EOSINOPHILS % 0.1 % (0.0-5.0); HEMATOCRIT. 32.5 % (36.0-48.0); HEMOGLOBIN. 11.4 g/dL (12.0-16.0); LYMPHOCYTES % 8.2 % (20.0-50.0); MEAN CORPUSCULAR HEMOGLOBIN 31.8 pg (28.0-32.0); MEAN CORPUSCULAR VOLUME 90.6 fL (81.0-99.0); MEAN PLATELET VOLUME 8.7 fl (7.4-10.4); NEUTROPHILS % 82.6 % (40.0-76.0); PLATELET 156 x1000/uL (130-400); RED BLOOD CELL COUNT 3.59 mill/uL (4.2-5.4); RED CELL DISTRIBUTION WIDTH 13.8 % (11.6-14.6)
[2019-02-22 01:35] LABS: CHLORIDE 109 mEq/L (98-107)
[2019-02-22 01:37] LABS: INR 1.1; PROTHROMBIN TIME 11.2 sec (9.6-11.0)
[2019-02-22 02:23] LABS: CLARITY URINE CLOUDY (CLEAR); COLOR URINE YELLOW (YELLOW); KETONES URINE NEGATIVE (NEGATIVE); LEUKOCYTE ESTERASE URINE NEGATIVE (NEGATIVE); NITRITE URINE NEGATIVE (NEGATIVE); OCCULT BLOOD URINE 1+ (NEGATIVE); PH URINE 5.5 (4.5-8.0); PROTEIN URINE 2+ (NEGATIVE); SPECIFIC GRAVITY URINE 1.017 (1.005-1.030); UROBILINOGEN URINE 0.2 E.U./dL (0.2-1.0)
[2019-02-22 02:56] LABS: BG BASE EXCESS -5.3 mmol/L (-2.0-2.0); BG CARBOXYHEMOGLOBIN 0.3 % (0.5-1.5); BG DEOXYHEMOGLOBIN 1.2 % (0.0-5.0); BG FRACTION INSPIRED OXYGEN 21; BG HCO3 ACT 16.8 mmol/L (22.0-26.0); BG METHEMOGLOBIN 0.6 % (0.0-1.5); BG OXYGEN SATURATION 98.8 % (92.0-98.5); BG OXYHEMOGLOBIN 97.9 % (94.0-97.0); BG PCO2 23.5 mmHg (35.0-45.0); BG PH 7.472 (7.350-7.450); BG PO2 156.9 mmHg (75.0-100.0); BG SAMPLE SITE LEFT RADIAL; BG TOTAL HEMOGLOBIN 11.1 g/dL (12.0-18.0); BG VENT MODE ROOM AIR
[2019-02-22] MEDS ORDERED: DILTIAZEM HCL 125 MG in DEXT 5% WATER 100 ML IV ONE (05:30)
[2019-02-22] MEDS ORDERED: DILTIAZEM HCL 5MG/ML 5ML VIAL IV ONE (05:30)
[2019-02-22 10:19] LABS: T4 FREE 1.41 ng/dL (0.76-1.46)
[2019-02-22] MEDS ORDERED: DEXTROSE 50% WATER 50ML SYRINGE IV PRN (14:45)
[2019-02-22] MEDS: DEXT 5%/0.45% NACL 1000ML 1,000 ML IV SCH (15:22)
[2019-02-22] MEDS ORDERED: ASPIRIN 81MG EC TABLET PO SCH (15:30)
[2019-02-22] MEDS ORDERED: VERAPAMIL HCL 2.5 MG/1 ML 2ML VIAL IV PRN (15:30)
[2019-02-22] MEDS ORDERED: ENOXAPARIN 30MG/0.3ML SYR SUBCUT NR (17:00)
[2019-02-22] MEDS: BLOOD SUGAR DIAGNOSTIC STRIP TEST SCH ×2 (17:50→23:19)
[2019-02-22] MEDS: INSULIN LISPRO 100 UNITS/ML SUBCUT SCH (17:59)
[2019-02-22] MEDS: DILTIAZEM HCL 60MG TABLET PO SCH (22:00)
[2019-02-23] VITALS (11 sets, daily range): BP systolic 102–129; BP diastolic 56–92
[2019-02-23 00:11] LABS: CREATINE KINASE MB FRACTION 2.6 ng/mL (0.5-3.6)
[2019-02-23] MEDS: DEXT 5%/0.45% NACL 1000ML 1,000 ML IV SCH (04:12)
[2019-02-23] MEDS: BLOOD SUGAR DIAGNOSTIC STRIP TEST SCH ×4 (05:42→23:36)
[2019-02-23] MEDS: INSULIN LISPRO 100 UNITS/ML SUBCUT SCH ×5 (06:02→23:51)
[2019-02-23] MEDS: DILTIAZEM HCL 60MG TABLET PO SCH ×3 (06:03→21:15)
[2019-02-23 07:50] LABS: CREATINE KINASE MB FRACTION 3.6 ng/mL (0.5-3.6)
[2019-02-23] MEDS ORDERED: ASPIRIN 81MG TABLET PO SCH (10:00)
[2019-02-23] MEDS: LEVETIRACETAM 250MG TABLET PO SCH ×2 (10:26→21:10)
[2019-02-23] MEDS: LEVOTHYROXINE SODIUM 75MCG TABLET PO SCH (10:26)
[2019-02-23] MEDS ORDERED: DILTIAZEM HCL 180MG CAPSULE CD 24HR PO SCH (11:00)
[2019-02-23] MEDS: INSULIN GLARGINE UD 100 UNITS/ML SYR SUBCUT SCH ×2 (11:00→22:24)
[2019-02-23 15:44] LABS: CREATINE KINASE MB FRACTION 3.5 ng/mL (0.5-3.6)
[2019-02-23] MEDS: APIXABAN 2.5 MG TABLET PO SCH (17:18)
[2019-02-23] MEDS: ATORVASTATIN CALCIUM 40MG TABLET PO SCH (21:10)
[2019-02-24] VITALS (12 sets, daily range): BP systolic 103–146; BP diastolic 47–87
[2019-02-24] MEDS: BLOOD SUGAR DIAGNOSTIC STRIP TEST SCH ×4 (05:33→23:20)
[2019-02-24] MEDS: DILTIAZEM HCL 60MG TABLET PO SCH ×3 (05:44→21:41)
[2019-02-24] MEDS: LEVOTHYROXINE SODIUM 75MCG TABLET PO SCH (05:44)
[2019-02-24] MEDS: INSULIN LISPRO 100 UNITS/ML SUBCUT SCH ×4 (05:45→23:30)
[2019-02-24] MEDS: LEVETIRACETAM 250MG TABLET PO SCH ×2 (09:18→21:41)
[2019-02-24] MEDS: APIXABAN 2.5 MG TABLET PO SCH ×2 (09:18→17:47)
[2019-02-24] MEDS: MUPIROCIN 2% OINT 22GM NS SCH ×2 (10:52→21:40)
[2019-02-24] MEDS: INSULIN GLARGINE UD 100 UNITS/ML SYR SUBCUT SCH ×2 (10:53→21:53)
[2019-02-24] MEDS: ATORVASTATIN CALCIUM 40MG TABLET PO SCH (21:41)
[2019-02-25] VITALS (10 sets, daily range): BP systolic 105–189; BP diastolic 48–77
[2019-02-25] MEDS: INSULIN LISPRO 100 UNITS/ML SUBCUT SCH ×2 (06:00→14:47)
[2019-02-25] MEDS: BLOOD SUGAR DIAGNOSTIC STRIP TEST SCH ×2 (06:33→12:18)
[2019-02-25] MEDS: DILTIAZEM HCL 60MG TABLET PO SCH ×2 (07:01→14:46)
[2019-02-25] MEDS: LEVOTHYROXINE SODIUM 75MCG TABLET PO SCH (07:01)
[2019-02-25] MEDS: APIXABAN 2.5 MG TABLET PO SCH (09:03)
[2019-02-25] MEDS: LEVETIRACETAM 250MG TABLET PO SCH (09:03)
[2019-02-25] MEDS: MUPIROCIN 2% OINT 22GM NS SCH (09:03)
[2019-02-25] MEDS ORDERED: LACT10SO30 PO (13:45)
[2019-02-25] MEDS ORDERED: ZINC220T PO (13:45)
[2019-02-25] MEDS ORDERED: ACET-2178 PO (13:45)
[2019-02-25] MEDS ORDERED: LANTUSUD SUBCUT (13:45)
[2019-02-25] MEDS ORDERED: CRAN3875 PO (13:45)
[2019-02-25] MEDS ORDERED: ACET-2708 PO (13:45)
[2019-02-25] MEDS ORDERED: DOCU100T PO (13:45)
[2019-02-25] MEDS ORDERED: ASCO-339 PO (13:45)
[2019-02-25] MEDS: INSULIN GLARGINE UD 100 UNITS/ML SYR SUBCUT SCH (14:50)
== END 2019-02-25 15:10 | DRG 872 ==
LOC: ER 01:02 → UNDOADMIN 05:28 → MICUNO 05:28 → 5EST 05:28 → MICUNO 05:30 → EDBEDREQTM 05:31 → EDBEDREQ 05:31 → ENRESERV 07:29
PROVIDERS: ADMIT Internal Medicine; ATTEND Internal Medicine
DX: A41.9 Sepsis, unspecified organism (principal); E46 Unspecified protein-calorie malnutrition; I82.511 Chronic embolism and thrombosis of right femoral vein; I69.354 Hemiplegia and hemiparesis following cerebral infarction affecting left non-dominant side; N39.0 Urinary tract infection, site not specified; G93.49 Other encephalopathy; Z68.1 Body mass index [BMI] 19.9 or less, adult; I69.320 Aphasia following cerebral infarction; I48.2 Chronic atrial fibrillation; D64.9 Anemia, unspecified; R74.8 Abnormal levels of other serum enzymes; G40.909 Epilepsy, unspecified, not intractable, without status epilepticus; M19.90 Unspecified osteoarthritis, unspecified site; E03.9 Hypothyroidism, unspecified; F03.90 Unspecified dementia, unspecified severity, without behavioral disturbance, psychotic disturbance, mood disturbance, and anxiety; E11.51 Type 2 diabetes mellitus with diabetic peripheral angiopathy without gangrene; I50.9 Heart failure, unspecified; I11.0 Hypertensive heart disease with heart failure; I25.10 Atherosclerotic heart disease of native coronary artery without angina pectoris; I25.5 Ischemic cardiomyopathy; K21.9 Gastro-esophageal reflux disease without esophagitis; Z74.01 Bed confinement status; Z95.810 Presence of automatic (implantable) cardiac defibrillator; Z90.11 Acquired absence of right breast and nipple; Z79.82 Long term (current) use of aspirin; Z87.440 Personal history of urinary (tract) infections
CPT/HCPCS: 36415; 36600; 71045; 82375; 82550; 82553; 82805; 82962; 83036; 83605; 83880; 84145; 84439; 84443; 84484; 93005; 93970; 96365; 99291; J1650; J1815; J1953; J2060; J2405; J2543; J3370; J3490; J7030; J7060

== ENCOUNTER 2019-03-11 13:13 | Inpatient (IN) | payer MEDICARE, MEDICAID ==
[~2019-03-11] VITALS: Ht 167.6 cm; Wt 78.0 kg
[~2019-03-11 13:13] MED LIST changes: +ACET-2708 PO; +CRAN3875 PO; +DOCU100T PO; -INSU100I28 SQ; +LACT10SO30 PO; +LANTUSUD SUBCUT; -MEGE40TA27 PO; +ZINC220T PO
[2019-03-11] MEDS ORDERED: VANCOMYCIN 1 G PREMIX 200 ML IV ONE (14:00)
[2019-03-11] MEDS ORDERED: SODIUM CHLORIDE 0.9% 1000ML BAG (SEPSIS BOLUS) IV ONE (14:00)
[2019-03-11] MEDS ORDERED: PIPERACILLIN/TAZ 3.375G PREMIX 50 ML IV ONE (14:00)
[2019-03-11 15:59] LABS: CHLORIDE 107 mEq/L (98-107)
[2019-03-11 16:00] LABS: HEMATOCRIT. 25.7 % (36.0-48.0); HEMOGLOBIN. 8.4 g/dL (12.0-16.0); MEAN CORPUSCULAR HEMOGLOBIN 29.1 pg (28.0-32.0); MEAN CORPUSCULAR VOLUME 88.8 fL (81.0-99.0); MEAN PLATELET VOLUME 8.4 fl (7.4-10.4); PLATELET 307 x1000/uL (130-400); RED BLOOD CELL COUNT 2.89 mill/uL (4.2-5.4); RED CELL DISTRIBUTION WIDTH 14.5 % (11.6-14.6)
[2019-03-11 16:04] LABS: INR 1.3; PARTIAL THROMBOPLASTIN TIME 36.7 sec (23.4-31.0); PROTHROMBIN TIME 13.3 sec (9.6-11.0)
[2019-03-11 16:07] LABS: BETA HYDROXYBUTYRATE 0.1 mMol/L (0.0-0.3)
[2019-03-11 16:39] LABS: PLATELET ESTIMATE NORMAL
[2019-03-11 20:16] LABS: CLARITY URINE CLOUDY (CLEAR); COLOR URINE DARK YELLOW (YELLOW); KETONES URINE TRACE (NEGATIVE); LEUKOCYTE ESTERASE URINE NEGATIVE (NEGATIVE); NITRITE URINE NEGATIVE (NEGATIVE); OCCULT BLOOD URINE 1+ (NEGATIVE); PROTEIN URINE 2+ (NEGATIVE); SPECIFIC GRAVITY URINE 1.027 (1.005-1.030)
[2019-03-11 21:10] VITALS: BP 118/67
[2019-03-11] MEDS ORDERED: APIX2.5T PO (22:05)
[2019-03-11] MEDS ORDERED: AMOX250S70 PO (22:07)
[2019-03-11] MEDS ORDERED: DILT60TA35 PO (22:30)
[2019-03-11] MEDS ORDERED: DEXTROSE 50% WATER 50ML SYRINGE IV PRN (22:45)
[2019-03-11] MEDS ORDERED: ACETAMINOPHEN 500MG TABLET PO PRN (22:45)
[2019-03-12] MEDS: DILTIAZEM HCL 60MG TABLET PO SCH ×3 (02:11→17:14)
[2019-03-12] MEDS: INSULIN GLARGINE UD 100 UNITS/ML SYR SUBCUT SCH ×3 (02:11→21:39)
[2019-03-12] MEDS: PIPERACILLIN/TAZ 2.25G PREMIX 50 ML IV SCH ×4 (02:11→21:38)
[2019-03-12 04:00] VITALS: BP 137/85
[2019-03-12] MEDS: BLOOD SUGAR DIAGNOSTIC STRIP TEST SCH ×4 (06:34→20:33)
[2019-03-12 06:42] LABS: HEMATOCRIT. 29.5 % (36.0-48.0); HEMOGLOBIN. 9.7 g/dL (12.0-16.0); MEAN CORPUSCULAR HEMOGLOBIN 28.9 pg (28.0-32.0); MEAN CORPUSCULAR VOLUME 87.7 fL (81.0-99.0); MEAN PLATELET VOLUME 8.8 fl (7.4-10.4); PLATELET 319 x1000/uL (130-400); RED BLOOD CELL COUNT 3.36 mill/uL (4.2-5.4); RED CELL DISTRIBUTION WIDTH 14.9 % (11.6-14.6)
[2019-03-12 07:23] LABS: CHLORIDE 109 mEq/L (98-107)
[2019-03-12 08:00] VITALS: BP 118/60
[2019-03-12] MEDS: INSULIN LISPRO 100 UNITS/ML SUBCUT SCH ×4 (08:10→21:00)
[2019-03-12] MEDS: LEVETIRACETAM 500MG TABLET PO SCH ×2 (08:53→20:33)
[2019-03-12] MEDS: LEVETIRACETAM 250MG TABLET PO SCH ×2 (08:54→20:33)
[2019-03-12] MEDS: LEVOTHYROXINE SODIUM 75MCG TABLET PO SCH (08:54)
[2019-03-12] MEDS: DOCUSATE SODIUM 250MG CAPSULE PO SCH (08:54)
[2019-03-12] MEDS: APIXABAN 2.5 MG TABLET PO SCH ×2 (08:55→17:12)
[2019-03-12] MEDS ORDERED: BROM PO SCH (09:00)
[2019-03-12] MEDS ORDERED: VITC PO SCH (09:00)
[2019-03-12] MEDS ORDERED: CRAN PO SCH (09:00)
[2019-03-12] MEDS ORDERED: [UNRECOGNIZED DRUG - OTHER] PO SCH (09:00)
[2019-03-12] MEDS ORDERED: INULIN PO SCH (09:00)
[2019-03-12] MEDS ORDERED: MANNOSE PO SCH (09:00)
[2019-03-12 10:10] LABS: PLATELET ESTIMATE NORMAL
[2019-03-12 12:00] VITALS: BP 102/50
[2019-03-12] MEDS ORDERED: AMIN30LI2 PO (15:30)
[2019-03-12] MEDS ORDERED: CRAN3875 PO (15:30)
[2019-03-12] MEDS ORDERED: ACET-2178 PO (15:30)
[2019-03-12] MEDS ORDERED: LANTUSUD SUBCUT (15:30)
[2019-03-12] MEDS ORDERED: INSU100V37 SQ (15:30)
[2019-03-12] MEDS ORDERED: MULT-1223 PO (15:30)
[2019-03-12 16:00] VITALS: BP 102/67
[2019-03-12 20:00] VITALS: BP 123/60
[2019-03-12] MEDS: ATORVASTATIN CALCIUM 40MG TABLET PO SCH (20:33)
[2019-03-12] MEDS ORDERED: MEDICATION NOT ON FORMULARY EA (Melatonin 1 TAB) MT SCH (21:00)
[2019-03-13] VITALS: BP 125/74
[2019-03-13] MEDS: DILTIAZEM HCL 60MG TABLET PO SCH ×3 (02:28→17:46)
[2019-03-13 04:00] VITALS: BP 118/68
[2019-03-13] MEDS: PIPERACILLIN/TAZ 2.25G PREMIX 50 ML IV SCH ×3 (05:12→21:04)
[2019-03-13] MEDS: BLOOD SUGAR DIAGNOSTIC STRIP TEST SCH ×4 (06:25→21:51)
[2019-03-13] MEDS: LEVOTHYROXINE SODIUM 75MCG TABLET PO SCH (06:46)
[2019-03-13 08:00] VITALS: BP 127/70
[2019-03-13] MEDS: INSULIN LISPRO 100 UNITS/ML SUBCUT SCH ×4 (08:10→22:00)
[2019-03-13] MEDS: DOCUSATE SODIUM 250MG CAPSULE PO SCH (10:14)
[2019-03-13] MEDS: LEVETIRACETAM 250MG TABLET PO SCH ×2 (10:14→20:13)
[2019-03-13] MEDS: LEVETIRACETAM 500MG TABLET PO SCH ×2 (10:15→20:14)
[2019-03-13] MEDS: APIXABAN 2.5 MG TABLET PO SCH ×3 (10:15→18:00)
[2019-03-13] MEDS: INSULIN GLARGINE UD 100 UNITS/ML SYR SUBCUT SCH ×2 (10:17→21:59)
[2019-03-13 12:00] VITALS: BP 125/59
[2019-03-13 16:00] VITALS: BP 104/57
[2019-03-13 20:00] VITALS: BP 106/55
[2019-03-13] MEDS: ATORVASTATIN CALCIUM 40MG TABLET PO SCH (20:13)
[2019-03-13] MEDS: ACETAMINOPHEN 325MG TABLET PO PRN (21:57)
[2019-03-14] VITALS: BP 136/67
[2019-03-14] MEDS: DILTIAZEM HCL 60MG TABLET PO SCH ×3 (02:38→18:30)
[2019-03-14 04:00] VITALS: BP 118/70
[2019-03-14] MEDS: PIPERACILLIN/TAZ 2.25G PREMIX 50 ML IV SCH ×3 (05:10→21:30)
[2019-03-14] MEDS: LEVOTHYROXINE SODIUM 75MCG TABLET PO SCH (06:53)
[2019-03-14] MEDS: BLOOD SUGAR DIAGNOSTIC STRIP TEST SCH ×4 (07:40→21:00)
[2019-03-14 08:00] VITALS: BP 121/73
[2019-03-14] MEDS: INSULIN LISPRO 100 UNITS/ML SUBCUT SCH ×4 (08:10→22:12)
[2019-03-14 12:00] VITALS: BP 112/68
[2019-03-14] MEDS: DOCUSATE SODIUM 250MG CAPSULE PO SCH (12:02)
[2019-03-14] MEDS: LEVETIRACETAM 250MG TABLET PO SCH ×2 (12:02→21:30)
[2019-03-14] MEDS: LEVETIRACETAM 500MG TABLET PO SCH ×2 (12:02→21:30)
[2019-03-14] MEDS: INSULIN GLARGINE UD 100 UNITS/ML SYR SUBCUT SCH ×2 (12:04→22:13)
[2019-03-14 16:00] VITALS: BP 128/62
[2019-03-14] MEDS: APIXABAN 2.5 MG TABLET PO SCH (18:30)
[2019-03-14 20:00] VITALS: BP 116/52
[2019-03-14] MEDS: ATORVASTATIN CALCIUM 40MG TABLET PO SCH (21:30)
[2019-03-14] MEDS: ACETAMINOPHEN 325MG TABLET PO PRN (21:31)
[2019-03-15] VITALS: BP 139/70
[2019-03-15] MEDS: DILTIAZEM HCL 60MG TABLET PO SCH ×3 (01:36→19:10)
[2019-03-15 04:00] VITALS: BP 120/66
[2019-03-15] MEDS: PIPERACILLIN/TAZ 2.25G PREMIX 50 ML IV SCH ×3 (05:19→21:35)
[2019-03-15] MEDS: BLOOD SUGAR DIAGNOSTIC STRIP TEST SCH ×4 (06:30→21:28)
[2019-03-15 08:00] VITALS: BP 110/75
[2019-03-15] MEDS: INSULIN LISPRO 100 UNITS/ML SUBCUT SCH ×4 (08:10→21:37)
[2019-03-15] MEDS: DOCUSATE SODIUM 250MG CAPSULE PO SCH (10:27)
[2019-03-15] MEDS: LEVETIRACETAM 500MG TABLET PO SCH ×2 (10:27→21:34)
[2019-03-15] MEDS: LEVETIRACETAM 250MG TABLET PO SCH ×2 (10:28→21:34)
[2019-03-15] MEDS: APIXABAN 2.5 MG TABLET PO SCH (10:28)
[2019-03-15] MEDS: LEVOTHYROXINE SODIUM 75MCG TABLET PO SCH (10:35)
[2019-03-15] MEDS: INSULIN GLARGINE UD 100 UNITS/ML SYR SUBCUT SCH ×2 (10:36→21:36)
[2019-03-15 12:00] VITALS: BP 115/63
[2019-03-15 16:00] VITALS: BP 115/63
[2019-03-15] MEDS ORDERED: VANCOMYCIN 1250MG in DEXTROSE 5% WATER 250ML IV SCH (18:00)
[2019-03-15 20:00] VITALS: BP 134/67
[2019-03-15] MEDS: ATORVASTATIN CALCIUM 40MG TABLET PO SCH (21:34)
[2019-03-15] MEDS: ACETAMINOPHEN 325MG TABLET PO PRN (21:35)
[2019-03-16] VITALS (8 sets, daily range): BP systolic 90–146; BP diastolic 60–90
[2019-03-16] MEDS: DILTIAZEM HCL 60MG TABLET PO SCH ×3 (02:00→17:44)
[2019-03-16] MEDS: PIPERACILLIN/TAZ 2.25G PREMIX 50 ML IV SCH ×3 (06:43→22:51)
[2019-03-16] MEDS ORDERED: NORMAL SALINE 0.9% 10 ML SYR ONE (07:03)
[2019-03-16] MEDS ORDERED: BUPIVACAINE HCL/PF 0.5% (5MG/ML) 10ML ONE (07:03)
[2019-03-16] MEDS ORDERED: BACITRACIN 50,000 UNITS/VIAL ONE (07:03)
[2019-03-16] MEDS ORDERED: LIDOCAINE HCL 1% 20ML VIAL (Pyxis) INJ ONE (07:03)
[2019-03-16] MEDS ORDERED: MIDAZOLAM HCL 2 MG/2 ML VIAL ONE (07:10)
[2019-03-16] MEDS ORDERED: FENTANYL CITRATE/PF 50MCG/ML 2ML VIAL ONE (07:10)
[2019-03-16] MEDS ORDERED: LIDOCAINE HCL/PF 1% 10 MG/ML 5ML VIAL ONE (07:11)
[2019-03-16] MEDS ORDERED: PROPOFOL 200MG/20ML VIAL IV ONE (07:11)
[2019-03-16] MEDS ORDERED: DIPHENHYDRAMINE 50MG/ML VIAL ONE (07:11)
[2019-03-16] MEDS: LEVOTHYROXINE SODIUM 75MCG TABLET PO SCH (07:40)
[2019-03-16] MEDS: INSULIN LISPRO 100 UNITS/ML SUBCUT SCH ×4 (08:10→21:00)
[2019-03-16] MEDS: LEVETIRACETAM 500MG TABLET PO SCH ×2 (09:00→21:11)
[2019-03-16] MEDS: DOCUSATE SODIUM 250MG CAPSULE PO SCH (09:00)
[2019-03-16] MEDS: LEVETIRACETAM 250MG TABLET PO SCH ×2 (09:00→21:11)
[2019-03-16] MEDS: INSULIN GLARGINE UD 100 UNITS/ML SYR SUBCUT SCH ×2 (10:00→22:52)
[2019-03-16] MEDS ORDERED: DILTIAZEM HCL 5MG/ML 5ML VIAL IV SCH (10:10)
[2019-03-16] MEDS: DILTIAZEM HCL 125 MG in DEXT 5% WATER 100 ML IV SCH (12:07)
[2019-03-16] MEDS: BLOOD SUGAR DIAGNOSTIC STRIP TEST SCH ×3 (12:15→21:00)
[2019-03-16] MEDS: SODIUM CHLORIDE 0.45% 1,000 ML IV SCH (13:36)
[2019-03-16] MEDS: VANCOMYCIN 1 G PREMIX 200 ML IV SCH (15:44)
[2019-03-16] MEDS ORDERED: ACETAMINOPHEN 500MG TABLET PO PRN (16:00)
[2019-03-16] MEDS: ACETAMINOPHEN 325MG TABLET PO PRN (17:46)
[2019-03-16] MEDS: ATORVASTATIN CALCIUM 40MG TABLET PO SCH (21:11)
[2019-03-17] VITALS (11 sets, daily range): BP systolic 94–128; BP diastolic 50–75
[2019-03-17] MEDS: DILTIAZEM HCL 60MG TABLET PO SCH ×3 (02:46→18:00)
[2019-03-17] MEDS: PIPERACILLIN/TAZ 2.25G PREMIX 50 ML IV SCH (05:14)
[2019-03-17] MEDS: DILTIAZEM HCL 125 MG in DEXT 5% WATER 100 ML IV SCH (05:21)
[2019-03-17] MEDS: LEVOTHYROXINE SODIUM 75MCG TABLET PO SCH (05:48)
[2019-03-17 07:08] LABS: BASOPHILS % 0.2 % (0.0-2.0); EOSINOPHILS % 0.1 % (0.0-5.0); HEMATOCRIT. 25.9 % (36.0-48.0); HEMOGLOBIN. 8.5 g/dL (12.0-16.0); LYMPHOCYTES % 7.2 % (20.0-50.0); MEAN CORPUSCULAR HEMOGLOBIN 28.4 pg (28.0-32.0); MEAN CORPUSCULAR VOLUME 86.5 fL (81.0-99.0); MEAN PLATELET VOLUME 8.4 fl (7.4-10.4); MONOCYTES % 8.7 % (2.0-8.0); NEUTROPHILS % 83.8 % (40.0-76.0); PLATELET 283 x1000/uL (130-400); RED BLOOD CELL COUNT 2.99 mill/uL (4.2-5.4)
[2019-03-17 07:27] LABS: CHLORIDE 111 mEq/L (98-107)
[2019-03-17] MEDS: BLOOD SUGAR DIAGNOSTIC STRIP TEST SCH ×4 (07:55→21:00)
[2019-03-17] MEDS: VANCOMYCIN 1 G PREMIX 200 ML IV SCH (07:58)
[2019-03-17] MEDS: INSULIN LISPRO 100 UNITS/ML SUBCUT SCH ×4 (08:00→22:13)
[2019-03-17] MEDS: DOCUSATE SODIUM 250MG CAPSULE PO SCH (09:18)
[2019-03-17] MEDS: LEVETIRACETAM 500MG TABLET PO SCH ×2 (09:18→22:05)
[2019-03-17] MEDS: LEVETIRACETAM 250MG TABLET PO SCH ×2 (09:18→22:05)
[2019-03-17] MEDS ORDERED: KCL 20MEQ/100ML PREMIX 100 ML IV NR (10:30)
[2019-03-17] MEDS: INSULIN GLARGINE UD 100 UNITS/ML SYR SUBCUT SCH ×2 (13:10→22:12)
[2019-03-17] MEDS: SODIUM CHLORIDE 0.45% 1,000 ML IV SCH (16:44)
[2019-03-17] MEDS: ACETAMINOPHEN 325MG TABLET PO PRN (16:44)
[2019-03-17] MEDS: ATORVASTATIN CALCIUM 40MG TABLET PO SCH (22:05)
[2019-03-18] VITALS (12 sets, daily range): BP systolic 107–150; BP diastolic 48–84
[2019-03-18] MEDS: VANCOMYCIN 1 G PREMIX 200 ML IV SCH (00:12)
[2019-03-18] MEDS: DILTIAZEM HCL 60MG TABLET PO SCH ×3 (02:14→17:34)
[2019-03-18] MEDS: LEVOTHYROXINE SODIUM 75MCG TABLET PO SCH (07:04)
[2019-03-18] MEDS: BLOOD SUGAR DIAGNOSTIC STRIP TEST SCH ×4 (07:30→21:00)
[2019-03-18] MEDS: INSULIN LISPRO 100 UNITS/ML SUBCUT SCH ×4 (08:00→22:56)
[2019-03-18] MEDS: LEVETIRACETAM 250MG TABLET PO SCH ×2 (09:50→22:19)
[2019-03-18] MEDS: LEVETIRACETAM 500MG TABLET PO SCH ×2 (09:50→22:19)
[2019-03-18] MEDS: SODIUM CHLORIDE 0.45% 1,000 ML IV SCH (09:52)
[2019-03-18] MEDS: INSULIN GLARGINE UD 100 UNITS/ML SYR SUBCUT SCH ×2 (09:54→22:59)
[2019-03-18] MEDS: DOCUSATE SODIUM SUGAR FREE 100MG/10ML UDC PO SCH (10:58)
[2019-03-18] MEDS: VANCOMYCIN 750 MG PREMIX 150 ML IV SCH (13:36)
[2019-03-18] MEDS: MAGNESIUM OXIDE 400MG TABLET PO SCH (14:36)
[2019-03-18 16:57] LABS: BASOPHILS % 0.2 % (0.0-2.0); EOSINOPHILS % 0.2 % (0.0-5.0); HEMATOCRIT. 23.3 % (36.0-48.0); HEMOGLOBIN. 7.7 g/dL (12.0-16.0); MEAN CORPUSCULAR HEMOGLOBIN 28.8 pg (28.0-32.0); MEAN CORPUSCULAR VOLUME 87.5 fL (81.0-99.0); MEAN PLATELET VOLUME 8.4 fl (7.4-10.4); MONOCYTES % 7.7 % (2.0-8.0); NEUTROPHILS % 77.9 % (40.0-76.0); PLATELET 225 x1000/uL (130-400); RED BLOOD CELL COUNT 2.66 mill/uL (4.2-5.4); RED CELL DISTRIBUTION WIDTH 15.1 % (11.6-14.6)
[2019-03-18 17:03] LABS: CHLORIDE 109 mEq/L (98-107)
[2019-03-18] MEDS: ATORVASTATIN CALCIUM 40MG TABLET PO SCH (22:20)
[2019-03-19] VITALS (17 sets, daily range): BP systolic 98–143; BP diastolic 42–89
[2019-03-19] MEDS: VANCOMYCIN 750 MG PREMIX 150 ML IV SCH ×2 (04:32→13:12)
[2019-03-19] MEDS: DILTIAZEM HCL 60MG TABLET PO SCH ×3 (04:33→17:10)
[2019-03-19] MEDS: SODIUM CHLORIDE 0.45% 1,000 ML IV SCH (04:33)
[2019-03-19] MEDS: INSULIN LISPRO 100 UNITS/ML SUBCUT SCH ×4 (07:29→20:55)
[2019-03-19] MEDS: BLOOD SUGAR DIAGNOSTIC STRIP TEST SCH ×4 (07:29→20:56)
[2019-03-19] MEDS: LEVOTHYROXINE SODIUM 75MCG TABLET PO SCH (07:41)
[2019-03-19 08:30] LABS: BASOPHILS % 0.3 % (0.0-2.0); EOSINOPHILS % 0.4 % (0.0-5.0); HEMATOCRIT. 21.6 % (36.0-48.0); HEMOGLOBIN. 7.1 g/dL (12.0-16.0); MEAN CORPUSCULAR VOLUME 85.1 fL (81.0-99.0); MONOCYTES % 8.9 % (2.0-8.0); NEUTROPHILS % 71.4 % (40.0-76.0); PLATELET 252 x1000/uL (130-400); RED BLOOD CELL COUNT 2.54 mill/uL (4.2-5.4); RED CELL DISTRIBUTION WIDTH 15.3 % (11.6-14.6)
[2019-03-19] MEDS: DOCUSATE SODIUM SUGAR FREE 100MG/10ML UDC PO SCH (09:00)
[2019-03-19 09:12] LABS: CHLORIDE 112 mEq/L (98-107)
[2019-03-19] MEDS: MAGNESIUM OXIDE 400MG TABLET PO SCH (09:25)
[2019-03-19] MEDS: LEVETIRACETAM 250MG TABLET PO SCH ×2 (09:25→20:53)
[2019-03-19] MEDS: LEVETIRACETAM 500MG TABLET PO SCH ×2 (09:26→20:53)
[2019-03-19] MEDS: INSULIN GLARGINE UD 100 UNITS/ML SYR SUBCUT SCH ×2 (09:28→21:55)
[2019-03-19] MEDS: ATORVASTATIN CALCIUM 40MG TABLET PO SCH (20:53)
[2019-03-20] VITALS (9 sets, daily range): BP systolic 94–139; BP diastolic 46–95
[2019-03-20] MEDS: VANCOMYCIN 750 MG PREMIX 150 ML IV SCH ×2 (01:28→13:45)
[2019-03-20] MEDS: DILTIAZEM HCL 60MG TABLET PO SCH ×2 (01:29→08:47)
[2019-03-20] MEDS: BLOOD SUGAR DIAGNOSTIC STRIP TEST SCH ×2 (07:17→12:14)
[2019-03-20] MEDS: INSULIN LISPRO 100 UNITS/ML SUBCUT SCH ×2 (08:00→12:15)
[2019-03-20] MEDS: LEVOTHYROXINE SODIUM 75MCG TABLET PO SCH (08:45)
[2019-03-20] MEDS: LEVETIRACETAM 250MG TABLET PO SCH (08:45)
[2019-03-20] MEDS: MAGNESIUM OXIDE 400MG TABLET PO SCH (08:45)
[2019-03-20] MEDS: LEVETIRACETAM 500MG TABLET PO SCH (08:45)
[2019-03-20] MEDS: INSULIN GLARGINE UD 100 UNITS/ML SYR SUBCUT SCH (08:46)
[2019-03-20] MEDS: DOCUSATE SODIUM SUGAR FREE 100MG/10ML UDC PO SCH (08:47)
[2019-03-20 08:53] LABS: BASOPHILS % 0.4 % (0.0-2.0); EOSINOPHILS % 0.2 % (0.0-5.0); HEMATOCRIT. 28.3 % (36.0-48.0); HEMOGLOBIN. 9.3 g/dL (12.0-16.0); LYMPHOCYTES % 16.7 % (20.0-50.0); MEAN CORPUSCULAR HEMOGLOBIN 28.5 pg (28.0-32.0); MEAN CORPUSCULAR VOLUME 86.7 fL (81.0-99.0); MEAN PLATELET VOLUME 8.1 fl (7.4-10.4); MONOCYTES % 10.1 % (2.0-8.0); NEUTROPHILS % 72.6 % (40.0-76.0); PLATELET 245 x1000/uL (130-400); RED BLOOD CELL COUNT 3.27 mill/uL (4.2-5.4); RED CELL DISTRIBUTION WIDTH 15.7 % (11.6-14.6)
[2019-03-20 09:12] LABS: CHLORIDE 111 mEq/L (98-107)
== END 2019-03-20 14:10 | DRG 853 ==
LOC: ER 13:31 → 7WST 16:45 → EDBEDREQ 16:50 → ENRESERV 19:21 → 5EST 03-16 11:35
PROVIDERS: ADMIT Internal Medicine; ATTEND Internal Medicine
PROC: 0Y6S0Z0 Detachment at Left 2nd Toe, Complete, Open Approach (ICD-10-PCS; principal; 2019-03-16)
PROC: 30233N1 Transfusion of Nonautologous Red Blood Cells into Peripheral Vein, Percutaneous Approach (ICD-10-PCS; 2019-03-19)
DX: A41.9 Sepsis, unspecified organism (principal); G93.41 Metabolic encephalopathy; I42.9 Cardiomyopathy, unspecified; M86.10 Other acute osteomyelitis, unspecified site; E87.2 Acidosis; I13.0 Hypertensive heart and chronic kidney disease with heart failure and stage 1 through stage 4 chronic kidney disease, or unspecified chronic kidney disease; L02.612 Cutaneous abscess of left foot; E44.0 Moderate protein-calorie malnutrition; E11.65 Type 2 diabetes mellitus with hyperglycemia; E11.51 Type 2 diabetes mellitus with diabetic peripheral angiopathy without gangrene; E11.621 Type 2 diabetes mellitus with foot ulcer; E11.69 Type 2 diabetes mellitus with other specified complication; E03.9 Hypothyroidism, unspecified; I48.2 Chronic atrial fibrillation; I50.9 Heart failure, unspecified; E78.00 Pure hypercholesterolemia, unspecified; D64.9 Anemia, unspecified; F03.90 Unspecified dementia, unspecified severity, without behavioral disturbance, psychotic disturbance, mood disturbance, and anxiety; J44.9 Chronic obstructive pulmonary disease, unspecified; I11.0 Hypertensive heart disease with heart failure; R65.20 Severe sepsis without septic shock; G40.909 Epilepsy, unspecified, not intractable, without status epilepticus; E11.22 Type 2 diabetes mellitus with diabetic chronic kidney disease; E78.5 Hyperlipidemia, unspecified; I48.0 Paroxysmal atrial fibrillation; K21.9 Gastro-esophageal reflux disease without esophagitis; N18.9 Chronic kidney disease, unspecified; L89.620 Pressure ulcer of left heel, unstageable; L89.610 Pressure ulcer of right heel, unstageable; L97.529 Non-pressure chronic ulcer of other part of left foot with unspecified severity; Z95.810 Presence of automatic (implantable) cardiac defibrillator; Z74.01 Bed confinement status; Z85.3 Personal history of malignant neoplasm of breast; Z90.11 Acquired absence of right breast and nipple; Z79.01 Long term (current) use of anticoagulants; Z79.4 Long term (current) use of insulin; Z86.718 Personal history of other venous thrombosis and embolism; Z89.422 Acquired absence of other left toe(s); Z68.27 Body mass index [BMI] 27.0-27.9, adult
CPT/HCPCS: 36415; 71045; 73630; 80048; 80202; 82010; 82962; 83036; 83605; 83735; 84100; 84145; 84443; 84484; 85651; 86850; 86900; 86920; 87070; 87075; 87077; 87493; 88305; 88311; 93005; 93923; 93970; 96374; 99285; C1893; J1200; J1815; J2250; J2543; J2704; J3010; J3370; J3480; J3490; J7030; J7050; J7060; P9016; A4315

== ENCOUNTER 2019-04-04 14:10 | Inpatient (IN) | payer MEDICARE, MEDICAID ==
[~2019-04-04] VITALS: Ht 167.6 cm; Wt 66.7 kg
[~2019-04-04 14:10] MED LIST changes: +AMIN30LI2 PO; +AMOX250S70 PO; -ASPI-1158 MT; -DILT180C66 PO; +DILT60TA35 PO; +INSU100V37 SQ; -LACT10SO30 PO; +MULT-1223 PO
[2019-04-04] MEDS ORDERED: IPRATROPIUM BROMIDE (0.02%) 0.5MG/2.5ML NEB HHN STA (14:51)
[2019-04-04] MEDS ORDERED: ALBUTEROL (0.083%) 2.5MG/3ML NEB HHN STA (14:51)
[2019-04-04] MEDS ORDERED: METHYLPREDNISOLONE SOD SUCC 125 MG/2 ML VIAL IV STA (14:51)
[2019-04-04] MEDS ORDERED: SODIUM CHLORIDE 0.9% 1000ML BAG (SEPSIS BOLUS) IV ONE (15:00)
[2019-04-04] MEDS ORDERED: PIPERACILLIN/TAZ 3.375G PREMIX 50 ML IV ONE (15:00)
[2019-04-04] MEDS ORDERED: VANCOMYCIN 1 G PREMIX 200 ML IV ONE (15:00)
[2019-04-04] MEDS ORDERED: DILTIAZEM HCL 5MG/ML 5ML VIAL IV ONE (15:15)
[2019-04-04 15:19] LABS: BASOPHILS % 0.7 % (0.0-2.0); EOSINOPHILS % 0.2 % (0.0-5.0); HEMATOCRIT. 32.7 % (36.0-48.0); HEMOGLOBIN. 10.4 g/dL (12.0-16.0); LYMPHOCYTES % 17.1 % (20.0-50.0); MEAN CORPUSCULAR HEMOGLOBIN 29.4 pg (28.0-32.0); MEAN CORPUSCULAR VOLUME 92.2 fL (81.0-99.0); MEAN PLATELET VOLUME 9.9 fl (7.4-10.4); MONOCYTES % 6.5 % (2.0-8.0); NEUTROPHILS % 75.5 % (40.0-76.0); PLATELET 81 x1000/uL (130-400); RED BLOOD CELL COUNT 3.55 mill/uL (4.2-5.4); RED CELL DISTRIBUTION WIDTH 20.3 % (11.6-14.6)
[2019-04-04 15:22] LABS: CHLORIDE 114 mEq/L (98-107)
[2019-04-04 15:25] LABS: INR 1.6; PROTHROMBIN TIME 16.2 sec (9.6-11.0)
[2019-04-04 16:47] LABS: BG BASE EXCESS -8.3 mmol/L (-2.0-2.0); BG BILEVEL POS AIRWAY PRESSURE ST=15/5; BG CARBOXYHEMOGLOBIN 0.3 % (0.5-1.5); BG DEOXYHEMOGLOBIN 0.4 % (0.0-5.0); BG FRACTION INSPIRED OXYGEN 100; BG HCO3 ACT 14.6 mmol/L (22.0-26.0); BG METHEMOGLOBIN 0.7 % (0.0-1.5); BG OXYGEN SATURATION 99.6 % (92.0-98.5); BG OXYHEMOGLOBIN 98.6 % (94.0-97.0); BG PCO2 22.8 mmHg (35.0-45.0); BG PH 7.423 (7.350-7.450); BG PRESSURE SUPPORT 10; BG SAMPLE SITE RIGHT BRACHIAL; BG TOTAL HEMOGLOBIN 10.7 g/dL (12.0-18.0); BG VENT MODE MASK - BIPAP; BG VENT RATE 14 set
[2019-04-04 17:50] LABS: CLARITY URINE CLOUDY (CLEAR); COLOR URINE DARK YELLOW (YELLOW); KETONES URINE TRACE (NEGATIVE); LEUKOCYTE ESTERASE URINE NEGATIVE (NEGATIVE); NITRITE URINE NEGATIVE (NEGATIVE); OCCULT BLOOD URINE 1+ (NEGATIVE); PROTEIN URINE 2+ (NEGATIVE); SPECIFIC GRAVITY URINE 1.026 (1.005-1.030)
[2019-04-04] MEDS ORDERED: DILTIAZEM HCL 125 MG in DEXT 5% WATER 100 ML IV ONE (18:15)
[2019-04-04 20:05] VITALS: BP 136/90
[2019-04-04] MEDS ORDERED: DEXTROSE 50% WATER 50ML SYRINGE IV PRN (21:30)
[2019-04-04] MEDS ORDERED: ACETAMINOPHEN 500MG TABLET PO PRN (21:30)
[2019-04-04] MEDS ORDERED: PIPERACILLIN/TAZOBACTAM 2.25 G in DEXTROSE 5% WATER 50 ML IV SCH (22:00)
[2019-04-05] VITALS (14 sets, daily range): BP systolic 112–138; BP diastolic 67–96
[2019-04-05] MEDS ORDERED: DILTIAZEM HCL 5MG/ML 5ML VIAL IV ONE
[2019-04-05] MEDS: PIPERACILLIN/TAZ 2.25G PREMIX 50 ML IV SCH ×4 (00:07→18:28)
[2019-04-05] MEDS: DEXT 5%/0.45% NACL 1000ML 1,000 ML IV SCH ×2 (00:07→21:10)
[2019-04-05] MEDS: BLOOD SUGAR DIAGNOSTIC STRIP TEST SCH ×4 (07:45→21:10)
[2019-04-05] MEDS: INSULIN LISPRO 100 UNITS/ML SUBCUT SCH ×4 (08:30→21:51)
[2019-04-05] MEDS ORDERED: IPRATROPIUM/ALBUTEROL 0.5-3(2.5)MG/3ML NEB HHN PRN (10:15)
[2019-04-05 10:23] LABS: BG BASE EXCESS -7.4 mmol/L (-2.0-2.0); BG BILEVEL POS AIRWAY PRESSURE 15/5; BG CARBOXYHEMOGLOBIN 0.3 % (0.5-1.5); BG DEOXYHEMOGLOBIN 0.5 % (0.0-5.0); BG FRACTION INSPIRED OXYGEN 50; BG HCO3 ACT 14.6 mmol/L (22.0-26.0); BG METHEMOGLOBIN 0.1 % (0.0-1.5); BG OXYGEN SATURATION 99.5 % (92.0-98.5); BG OXYHEMOGLOBIN 99.1 % (94.0-97.0); BG PCO2 21.1 mmHg (35.0-45.0); BG PH 7.459 (7.350-7.450); BG PO2 273.1 mmHg (75.0-100.0); BG SAMPLE SITE RIGHT RADIAL; BG TOTAL HEMOGLOBIN 10.9 g/dL (12.0-18.0); BG VENT MODE MASK - BIPAP; BG VENT RATE 14 set
[2019-04-05] MEDS: VANCOMYCIN 750 MG PREMIX 150 ML IV SCH (10:53)
[2019-04-05] MEDS ORDERED: FUROSEMIDE 40MG/4ML VIAL IVP SCH (11:15)
[2019-04-05 12:46] LABS: BASOPHILS % 0.5 % (0.0-2.0); HEMATOCRIT. 33.3 % (36.0-48.0); HEMOGLOBIN. 10.5 g/dL (12.0-16.0); LYMPHOCYTES % 12.5 % (20.0-50.0); MEAN CORPUSCULAR HEMOGLOBIN 29.3 pg (28.0-32.0); MEAN CORPUSCULAR VOLUME 93.2 fL (81.0-99.0); MEAN PLATELET VOLUME 10.2 fl (7.4-10.4); MONOCYTES % 3.3 % (2.0-8.0); NEUTROPHILS % 83.7 % (40.0-76.0); PLATELET 70 x1000/uL (130-400); RED BLOOD CELL COUNT 3.57 mill/uL (4.2-5.4); RED CELL DISTRIBUTION WIDTH 20.2 % (11.6-14.6)
[2019-04-05 19:10] LABS: HEMOGLOBIN 10.3 g/dL (12.0-16.0); MEAN CORPUSCULAR HEMOGLOBIN 29.1 pg (28.0-32.0); MEAN CORPUSCULAR VOLUME 90.8 fL (81.0-99.0); PLATELET 67 x1000/uL (130-400); RED BLOOD CELL COUNT 3.53 mill/uL (4.2-5.4); RED CELL DISTRIBUTION WIDTH 21.2 % (11.6-14.6)
[2019-04-05 19:19] LABS: CHLORIDE 116 mEq/L (98-107); INR 1.7; PARTIAL THROMBOPLASTIN TIME 29.1 sec (23.4-31.0); PROTHROMBIN TIME 16.9 sec (9.6-11.0)
[2019-04-05] MEDS: DILTIAZEM HCL 30MG TABLET NG SCH (21:03)
[2019-04-05] MEDS: PANTOPRAZOLE SODIUM 40 MG/VIAL IV SCH (21:09)
[2019-04-06] VITALS (15 sets, daily range): BP systolic 103–130; BP diastolic 61–94
[2019-04-06] MEDS: PIPERACILLIN/TAZ 2.25G PREMIX 50 ML IV SCH ×4 (00:45→18:00)
[2019-04-06] MEDS: VANCOMYCIN 750 MG PREMIX 150 ML IV SCH (03:54)
[2019-04-06] MEDS: DILTIAZEM HCL 30MG TABLET NG SCH ×3 (05:35→18:00)
[2019-04-06] MEDS: BLOOD SUGAR DIAGNOSTIC STRIP TEST SCH ×4 (07:30→21:11)
[2019-04-06] MEDS: INSULIN LISPRO 100 UNITS/ML SUBCUT SCH ×4 (08:00→21:00)
[2019-04-06] MEDS: PANTOPRAZOLE SODIUM 40 MG/VIAL IV SCH ×2 (09:37→21:00)
[2019-04-06 13:09] LABS: BASOPHILS % 0.1 % (0.0-2.0); HEMATOCRIT. 30.7 % (36.0-48.0); LYMPHOCYTES % 8.3 % (20.0-50.0); MEAN CORPUSCULAR HEMOGLOBIN 29.5 pg (28.0-32.0); MEAN CORPUSCULAR VOLUME 90.4 fL (81.0-99.0); MEAN PLATELET VOLUME 10.6 fl (7.4-10.4); MONOCYTES % 3.6 % (2.0-8.0); PLATELET 60 x1000/uL (130-400); RED BLOOD CELL COUNT 3.39 mill/uL (4.2-5.4); RED CELL DISTRIBUTION WIDTH 20.6 % (11.6-14.6)
[2019-04-06] MEDS ORDERED: FUROSEMIDE 40MG/4ML VIAL IVP NR (13:15)
[2019-04-06] MEDS: DEXT 5%/0.45% NACL 1000ML 1,000 ML IV SCH (14:10)
[2019-04-06] MEDS ORDERED: VANCOMYCIN 1 G PREMIX 200 ML IV SCH (21:00)
[2019-04-07] VITALS (12 sets, daily range): BP systolic 101–157; BP diastolic 42–101
[2019-04-07] MEDS: PIPERACILLIN/TAZ 2.25G PREMIX 50 ML IV SCH ×4 (06:00→19:05)
[2019-04-07] MEDS: BLOOD SUGAR DIAGNOSTIC STRIP TEST SCH ×4 (06:04→21:51)
[2019-04-07 06:21] LABS: HEMATOCRIT. 32.7 % (36.0-48.0); HEMOGLOBIN. 10.5 g/dL (12.0-16.0); LYMPHOCYTES % 14.3 % (20.0-50.0); MEAN CORPUSCULAR HEMOGLOBIN 29.3 pg (28.0-32.0); MEAN CORPUSCULAR VOLUME 91.3 fL (81.0-99.0); MEAN PLATELET VOLUME 10.9 fl (7.4-10.4); MONOCYTES % 4.2 % (2.0-8.0); NEUTROPHILS % 81.5 % (40.0-76.0); PLATELET 66 x1000/uL (130-400); RED BLOOD CELL COUNT 3.58 mill/uL (4.2-5.4); RED CELL DISTRIBUTION WIDTH 20.6 % (11.6-14.6)
[2019-04-07] MEDS: DILTIAZEM HCL 30MG TABLET NG SCH ×3 (06:23→11:12)
[2019-04-07 06:54] LABS: INR 1.8; PROTHROMBIN TIME 17.8 sec (9.6-11.0)
[2019-04-07] MEDS ORDERED: LIDOCAINE HCL 1% 20ML VIAL (Pyxis) INJ ONE (07:15)
[2019-04-07] MEDS: INSULIN LISPRO 100 UNITS/ML SUBCUT SCH ×4 (08:00→22:33)
[2019-04-07] MEDS: DEXTROSE 5% WATER 1,000 ML IV SCH (08:15)
[2019-04-07] MEDS: PANTOPRAZOLE SODIUM 40 MG/VIAL IV SCH ×2 (11:12→21:50)
[2019-04-07] MEDS: VANCOMYCIN 1 G PREMIX 200 ML IV SCH (14:01)
[2019-04-07] MEDS ORDERED: FUROSEMIDE 20MG/2ML VIAL IVP NR (14:45)
[2019-04-07] MEDS ORDERED: DILTIAZEM HCL 30MG TABLET PO SCH (16:15)
[2019-04-07] MEDS: DILTIAZEM HCL 60MG TABLET NG SCH (18:00)
[2019-04-08] VITALS (11 sets, daily range): BP systolic 80–126; BP diastolic 49–90
[2019-04-08] MEDS: PIPERACILLIN/TAZ 2.25G PREMIX 50 ML IV SCH ×2 (00:45→05:31)
[2019-04-08] MEDS: DILTIAZEM HCL 60MG TABLET NG SCH ×4 (00:48→18:15)
[2019-04-08] MEDS: DEXTROSE 5% WATER 1,000 ML IV SCH (05:32)
[2019-04-08] MEDS: BLOOD SUGAR DIAGNOSTIC STRIP TEST SCH ×4 (06:40→21:30)
[2019-04-08] MEDS: VANCOMYCIN 1 G PREMIX 200 ML IV SCH (07:37)
[2019-04-08] MEDS: INSULIN LISPRO 100 UNITS/ML SUBCUT SCH ×4 (07:44→21:38)
[2019-04-08] MEDS: PANTOPRAZOLE SODIUM 40 MG/VIAL IV SCH ×2 (08:15→21:37)
[2019-04-08 09:24] LABS: BASOPHILS % 0.1 % (0.0-2.0); HEMATOCRIT. 30.4 % (36.0-48.0); HEMOGLOBIN. 9.9 g/dL (12.0-16.0); LYMPHOCYTES % 11.5 % (20.0-50.0); MEAN CORPUSCULAR HEMOGLOBIN 29.3 pg (28.0-32.0); MEAN PLATELET VOLUME 10.7 fl (7.4-10.4); MONOCYTES % 4.4 % (2.0-8.0); PLATELET 57 x1000/uL (130-400); RED BLOOD CELL COUNT 3.38 mill/uL (4.2-5.4); RED CELL DISTRIBUTION WIDTH 20.4 % (11.6-14.6)
[2019-04-08 09:44] LABS: CHLORIDE 109 mEq/L (98-107)
[2019-04-08] MEDS ORDERED: MAGNESIUM 2 G PREMIX 50 ML IV SCH (12:00)
[2019-04-08] MEDS ORDERED: POTASSIUM PHOS,M-BASIC-D-BASIC 15 MMOL in DEXT 5% WATER 245 ML IV SCH (12:00)
[2019-04-08] MEDS ORDERED: KCL 20MEQ/100ML PREMIX 100 ML IV SCH (13:00)
[2019-04-08] MEDS ORDERED: FUROSEMIDE 40MG/4ML VIAL IVP ONE (13:15)
[2019-04-08] MEDS ORDERED: MIDAZOLAM HCL 5 MG/5 ML VIAL ONE (15:30)
[2019-04-08] MEDS ORDERED: FENTANYL CITRATE/PF 50MCG/ML 2ML VIAL ONE (15:30)
[2019-04-08] MEDS ORDERED: MIDAZOLAM HCL 5 MG/5 ML VIAL IV PRN (15:57)
[2019-04-08] MEDS ORDERED: POTASSIUM CHLORIDE 20MEQ TABLET SR PO SCH (18:00)
[2019-04-09] VITALS (11 sets, daily range): BP systolic 98–153; BP diastolic 44–84
[2019-04-09] MEDS: DILTIAZEM HCL 60MG TABLET NG SCH ×4 (00:28→18:40)
[2019-04-09] MEDS: DEXTROSE 5% WATER 1,000 ML IV SCH (01:49)
[2019-04-09] MEDS: INSULIN LISPRO 100 UNITS/ML SUBCUT SCH ×4 (08:00→20:25)
[2019-04-09] MEDS: BLOOD SUGAR DIAGNOSTIC STRIP TEST SCH ×4 (08:30→20:21)
[2019-04-09 08:32] LABS: BASOPHILS % 0.3 % (0.0-2.0); EOSINOPHILS % 0.2 % (0.0-5.0); HEMATOCRIT. 29.7 % (36.0-48.0); HEMOGLOBIN. 9.6 g/dL (12.0-16.0); LYMPHOCYTES % 13.4 % (20.0-50.0); MEAN CORPUSCULAR HEMOGLOBIN 29.4 pg (28.0-32.0); MEAN CORPUSCULAR VOLUME 90.9 fL (81.0-99.0); MEAN PLATELET VOLUME 10.2 fl (7.4-10.4); MONOCYTES % 3.2 % (2.0-8.0); NEUTROPHILS % 82.9 % (40.0-76.0); PLATELET 53 x1000/uL (130-400); RED BLOOD CELL COUNT 3.26 mill/uL (4.2-5.4); RED CELL DISTRIBUTION WIDTH 20.2 % (11.6-14.6)
[2019-04-09 08:38] LABS: CHLORIDE 105 mEq/L (98-107)
[2019-04-09] MEDS ORDERED: POTASSIUM CHLORIDE 20MEQ/PACKET PO NR (09:15)
[2019-04-09] MEDS: PANTOPRAZOLE SODIUM 40 MG/VIAL IV SCH ×2 (09:25→20:15)
[2019-04-09] MEDS ORDERED: MAGNESIUM 2 G PREMIX 50 ML IV SCH (11:00)
== END 2019-04-10 00:34 | DRG 871 ==
LOC: ER 14:10 → 5EST 16:22 → EDBEDREQ 16:27 → ENRESERV 17:43
PROVIDERS: ADMIT Internal Medicine; ATTEND Internal Medicine
PROC: 5A09457 Assistance with Respiratory Ventilation, 24-96 Consecutive Hours, Continuous Positive Airway Pressure (ICD-10-PCS; 2019-04-04)
PROC: 02HV33Z Insertion of Infusion Device into Superior Vena Cava, Percutaneous Approach (ICD-10-PCS; principal; 2019-04-07)
PROC: B548ZZA Ultrasonography of Superior Vena Cava, Guidance (ICD-10-PCS; 2019-04-07)
PROC: 0DH63UZ Insertion of Feeding Device into Stomach, Percutaneous Approach (ICD-10-PCS; 2019-04-08)
DX: A41.9 Sepsis, unspecified organism (principal); E43 Unspecified severe protein-calorie malnutrition; J96.00 Acute respiratory failure, unspecified whether with hypoxia or hypercapnia; I50.43 Acute on chronic combined systolic (congestive) and diastolic (congestive) heart failure; J69.0 Pneumonitis due to inhalation of food and vomit; G92 Toxic encephalopathy; I69.354 Hemiplegia and hemiparesis following cerebral infarction affecting left non-dominant side; I13.0 Hypertensive heart and chronic kidney disease with heart failure and stage 1 through stage 4 chronic kidney disease, or unspecified chronic kidney disease; N39.0 Urinary tract infection, site not specified; N17.9 Acute kidney failure, unspecified; D61.818 Other pancytopenia; E87.0 Hyperosmolality and hypernatremia; E87.2 Acidosis; J44.1 Chronic obstructive pulmonary disease with (acute) exacerbation; D68.9 Coagulation defect, unspecified; J91.8 Pleural effusion in other conditions classified elsewhere; I42.0 Dilated cardiomyopathy; E78.5 Hyperlipidemia, unspecified; N18.9 Chronic kidney disease, unspecified; E03.9 Hypothyroidism, unspecified; E11.22 Type 2 diabetes mellitus with diabetic chronic kidney disease; E11.51 Type 2 diabetes mellitus with diabetic peripheral angiopathy without gangrene; E11.69 Type 2 diabetes mellitus with other specified complication; E78.00 Pure hypercholesterolemia, unspecified; E83.42 Hypomagnesemia; E86.9 Volume depletion, unspecified; E87.6 Hypokalemia; F03.90 Unspecified dementia, unspecified severity, without behavioral disturbance, psychotic disturbance, mood disturbance, and anxiety; G40.909 Epilepsy, unspecified, not intractable, without status epilepticus; F32.9 Major depressive disorder, single episode, unspecified; G89.29 Other chronic pain; M54.5 Low back pain; I25.10 Atherosclerotic heart disease of native coronary artery without angina pectoris; I48.2 Chronic atrial fibrillation; K21.9 Gastro-esophageal reflux disease without esophagitis; L89.159 Pressure ulcer of sacral region, unspecified stage; M19.90 Unspecified osteoarthritis, unspecified site; R62.7 Adult failure to thrive; Z74.01 Bed confinement status; Z79.01 Long term (current) use of anticoagulants; Z79.4 Long term (current) use of insulin; Z85.3 Personal history of malignant neoplasm of breast; I69.320 Aphasia following cerebral infarction; Z86.718 Personal history of other venous thrombosis and embolism; Z89.422 Acquired absence of other left toe(s); Z90.11 Acquired absence of right breast and nipple; Z95.0 Presence of cardiac pacemaker; Z68.23 Body mass index [BMI] 23.0-23.9, adult; Z79.899 Other long term (current) drug therapy
CPT/HCPCS: 36415; 36600; 71045; 76604; 76937; 80048; 80076; 80202; 82375; 82805; 82962; 83036; 83605; 83735; 83880; 84145; 84484; 85027; 92610; 93005; 94640; 94660; 96365; 96366; 99291; C1725; C9113; J1815; J1940; J2250; J2543; J2930; J3010; J3370; J3475; J3480; J3490; J7030; J7050; J7060; J7070; J7611; J7620

== ENCOUNTER 2019-04-15 14:16 | Emergency (ER) | payer MEDICARE, MEDICAID ==
[~2019-04-15] VITALS: Ht 167.6 cm; Wt 55.0 kg
[2019-04-15 14:35] VITALS: BP 96/58
[2019-04-15] MEDS ORDERED: EPINEPHRINE 0.1MG/ML (1:10,000) 10ML SYR ONE ×3 (14:39→14:59)
== END 2019-04-15 14:59 | disposition expired ==
LOC: ER 14:16
DX: I46.9 Cardiac arrest, cause unspecified (principal); I10 Essential (primary) hypertension; E11.9 Type 2 diabetes mellitus without complications; I25.10 Atherosclerotic heart disease of native coronary artery without angina pectoris; I11.0 Hypertensive heart disease with heart failure; I50.9 Heart failure, unspecified; E03.9 Hypothyroidism, unspecified; E78.5 Hyperlipidemia, unspecified; I25.2 Old myocardial infarction; Z95.810 Presence of automatic (implantable) cardiac defibrillator; Z86.73 Personal history of transient ischemic attack (TIA), and cerebral infarction without residual deficits; Z79.4 Long term (current) use of insulin; Z79.899 Other long term (current) drug therapy
CPT/HCPCS: 31500; 82962; 99291; J3490